=== PATIENT | male | born 1970 | race Caucasian/White ===

== ENCOUNTER 2016-03-12 09:01 | Outpatient (RCR) | payer OTHER ==
--- OUTSIDE RECORDS SUMMARY | 2016-03-06 12:44 | XMS REPORT | Continuity of Care Document ---
Author Author [facility] Organization [facility] Address Unknown Phone Unavailable Care Team Providers Care Wellness Consultant Name Role Phone JOSEFINA BRIONES MD PCP Insurance Providers Payer Name Policy Number Subscriber Name Relationship [employer] [id number] Meryl Dumont D 01 Advance Directives Directive Response Recorded Date/Time Advance Directives No 03/05/16 6:49am Health Care Power of Art Department Head No 03/05/16 6:49am Organ Donor No 03/05/16 6:49am Resuscitation Status Full Code 03/05/16 6:49am Problems No problem information available. Medications Current Home Medications Medication Dose Units Route Directions Days/Qty Instructions Start Date Phenylephrine/Diphenhydramine 1 Each 1 Each Oral Daily 03/03/16 Oxycodone Hcl/Acetaminophen 1 Each 1 Each Oral Every 4HRS as needed for Pain 40 03/05/16 Past Home Medications Medication Directions Ordered Status Acetaminophen 500 Mg Tablet, 05/29/07 Discontinued Amoxicillin/Clavulanate Potassium 1 Each Tablet, 500 Mg Oral Twice A Day Discontinued Acetaminophen/Hydrocodone Bitart 1 Each Tablet, 1-2 Tab Oral Every 4HRS as needed for Pain 06/02/13 Discontinued Social History Social History Problem Response Recorded Date/Time Alcohol Use Denies Use 03/05/2016 6:49am Recreational Drug Use No 03/05/2016 6:49am Recent Foreign Travel No 03/05/2016 6:50am Recent Infectious Disease Exposure No 03/05/2016 6:50am Smoking Status Never a Smoker 03/05/2016 6:49am Recent Hopitalizations No 03/05/2016 6:49am Query Response Start Date Stop Date Smoking Status Never a Smoker Hospital Discharge Instructions No hospital discharge instructions. Plan of Care Discharge Date 03/05/16 11:15am Instructions/Education Provided ANESTHESIA INSTRUCTIONS POSTOP DR. BRIONES-SHOULDER SURGERY Prescriptions See Medication Section Functional Status No functional status results. Allergies, Adverse Reactions, Alerts No known allergies. Immunizations No immunization records. Vital Signs Acute Vital Signs Vital Response Date/Time Temperature (Fahrenheit) 96.6 degrees F (97.6 - 99.5) 03/05/2016 11:15am Temperature (Calculated Celsius) 35.00612 degrees C (36.4 - 37.5) 03/05/2016 11:15am Temperature Source Temporal 03/05/2016 11:15am Pulse Rate (adult) 96 bpm (60 - 90) 03/05/2016 11:15am Respiratory Rate 16 bpm (12 - 24) 03/05/2016 11:15am O2 Sat by Pulse Oximetry 92 % (88 - 100) 03/05/2016 11:15am Blood Pressure 142/90 mm Hg 03/05/2016 11:15am Blood Pressure Mean 107 mm Hg 03/05/2016 6:51am Blood Pressure 142/90 mm Hg 03/05/2016 11:15am Pain Numeric Pain Scale 3 03/05/2016 11:15am Pain Intensity 3 03/05/2016 11:15am Height (Feet) 5 feet 03/05/2016 6:50am Height (Inches) 9.00 inches 03/05/2016 6:50am Height (Calculated Centimeters) 175.071085 cm 03/05/2016 6:50am Weight (Pounds) 218 pounds 03/05/2016 6:50am Weight (Ounces) 2.0 oz 03/05/2016 6:50am Weight (Calculated Grams) 75897.84 gm 03/05/2016 6:50am Weight (Calculated Kilograms) 98.079273 kilograms 03/05/2016 6:50am Calculated BMI 32.2 03/05/2016 6:50am Results Pending Microbiology Results Procedure Source Collection Date/Time Procedures Procedure Status Date Provider(s) Open repair of right rotator cuff Completed 03/05/16 JOSEFINA BRIONES MD Encounters Encounter Location Arrival/Admit Date Discharge/Depart Date Attending Provider Departed [facility] 03/05/16 6:16am 11:15am JOSEFINA BRIONES MD Departed Clinic [facility] 03/03/16 2:09pm 03/03/16 2: 26pm JOSEFINA BRIONES MD
[~2016-03-12 09:01] MED LIST: AC500T; ACHD5005 PO; AMOX-355 PO; OXYC-471 PO; [UNRECOGNIZED DRUG - CODE] PO
== END 2016-04-01 13:25 | disposition home or self-care (01) ==
PROVIDERS: ATTEND Orthopaedic Surgery
DX: S43.431A Superior glenoid labrum lesion of right shoulder, initial encounter (principal); X58.XXXA Exposure to other specified factors, initial encounter; Y99.8 Other external cause status

== ENCOUNTER → 2016-10-08 | Outpatient (CLI) | payer OTHER ==
[~2016-10-08] MED LIST changes: +DOCU100C37 PO; +ONDA4TAB11 PO; +PANT40TA2 PO; +SUCR1ORA5 PO; +SUCR1TAB36 PO
[2016-10-13 07:37] LABS: TESTOSTERONE FREE 59.6 pg/mL (47.0-244.0)
== END ==
LOC: LAB 09:07
PROVIDERS: ATTEND Urology
DX: E29.1 Testicular hypofunction (principal)
CPT/HCPCS: 36415; 84402; 84403

== ENCOUNTER → 2017-01-26 | Outpatient (CLI) | payer OTHER ==
[~2017-01-26] MED LIST changes: +CATHETER FLUSH 10 ML SYR IV PRN
--- NOTE | 2017-01-27 12:16 | Diagnostic Imaging Report ---
EXAMINATION: Whole-body octreotide scan. TECHNIQUE: After the intravenous administration of 6.6 mCi of indium 111 octreotide, imaging of the whole body is performed at 4 hours and at 24 hours after administration. INDICATION: Mass in the right lower quadrant. FINDINGS: There is uvyk-ih-ltrunptn area of increased uptake seen in the right lower quadrant suggestive of a somatostatin receptor positive mass in correlation with the lesion seen on CT scan in the right lower quadrant of the mesentery. The uptake persists on 24-hour images. There is physiologic uptake in the liver, kidneys, spleen and in the urinary bladder. The activity is difficult to differentiate between mesentery and TI and area of thickening in the terminal ileum seen on CT scan is not well evaluated on this exam. There is otherwise no evidence of distant metastasis. 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 Dictated by: Dictated on workstation # [id number]
--- NOTE | 2017-01-27 14:21 | Diagnostic Imaging Report ---
SPECT images performed after octreotide scan in three planes. Images seen after the intravenous administration of 6.6 mCi of indium-111 octreotide intravenously, images with SPECT in three planes are performed after 24 hours of the injection. SPECT images are performed over the abdomen and pelvis. INDICATION: Right lower quadrant mass. FINDINGS: The images demonstrate focus of mild/ moderate increased radiotracer uptake in the right lower quadrant area. The image resolution and intensity of uptake is not enough to differentiate if there are two adjacent lesions as questioned on the CT scan based on the mesenteric lesion and possible lesion within the terminal ileum. SPECT images over the abdomen otherwise demonstrate physiologic uptake in the kidneys, liver, and spleen and in the bladder. IMPRESSION: Right lower quadrant uptake appears to match the area of mesenteric mass in the right lower quadrant mesentery compatible with somatostatin receptor positive tumor. Dictated by: Dictated on workstation # [id number]
== END ==
LOC: CARD 09:37
PROVIDERS: ATTEND Family Medicine
DX: R19.03 Right lower quadrant abdominal swelling, mass and lump (principal)
CPT/HCPCS: 78803; 78804

== ENCOUNTER 2017-02-12 05:36 | Outpatient (CLI) | payer OTHER ==
[~2017-02-12] VITALS: Ht 177.8 cm; Wt 99.8 kg
[~2017-02-12 05:36] MED LIST changes: -CATHETER FLUSH 10 ML SYR IV PRN
== END 2017-02-12 10:14 ==
LOC: PREOP 05:36
PROVIDERS: ATTEND Surgery
DX: Z01.818 Encounter for other preprocedural examination (principal); R10.9 Unspecified abdominal pain; R19.00 Intra-abdominal and pelvic swelling, mass and lump, unspecified site

== ENCOUNTER 2017-02-18 05:34 | Outpatient (CLI) | payer OTHER ==
[~2017-02-18] VITALS: Ht 177.8 cm; Wt 99.8 kg
== END 2017-02-18 14:25 ==
LOC: PREOP 05:34
PROVIDERS: ATTEND Surgery
DX: Z01.818 Encounter for other preprocedural examination (principal); Z11.2 Encounter for screening for other bacterial diseases; R19.03 Right lower quadrant abdominal swelling, mass and lump
CPT/HCPCS: 87081

== ENCOUNTER 2017-02-18 12:30 | Day surgery (SDC) | payer OTHER ==
[~2017-02-18] VITALS: Ht 177.8 cm; Wt 99.8 kg
--- OUTSIDE RECORDS SUMMARY | 2017-02-18 12:34 | XMS REPORT | Encounter Summary ---
Author Author [facility] Address Unknown Phone Unavailable Care Team Providers Care Granulating Machine Operator Name Role Phone PCP Unavailable Reason for Visit * Reason Comments Navigation Assessment Encounter Details Date Type Department Care Team Description 02/02/2017 Telephone [facility] Devin Cortez MD Navigation Assessment [facility] - Exam [address] [place] [address] [place] [address] [phone] Social History Tobacco Use Types Packs/Day Years Used Date Never Assessed Sex Assigned at Date Recorded Not on file as of this encounter Miscellaneous Notes * Telephone Encounter - Uyen Petersen RN - 02/02/2017 1:12 PM PLATING TECHNICIAN Formatting of this note may be different from the original. 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 He was admitted over night to [facility] for abdominal pain. While there he had a CT scan that noted 3.3 CM mass in the right lower quadrant mesentery and some mild wall thickening of the distal ileum. 01/20/2017 he had an octreotide scan -- mesenteric mass in the right lower quadrant Suggestive of somatostatin receptor positive tumor. Patient is scheduled for surgical resection in [facility] on 02/09 but is wanting opinion and possible surgery at . Physician Info: Referring Physician: Dr Rodrigues [phone] Location of Films: [facility] Location of Pathology: None NEEDS Assessment: Genetic Counseling: Not Applicable Nutrition: No needs identified Have you recently lost weight without trying?: No If yes, how much weight have you lost?: Weight Loss Score: 0 2-13lb=1 14-23 lb=2 24-33 lb=3 34lb=4 Unsure=2 Have you been eating poorly because of a decreased appetite?: no Appetite Score: 0 No=0 Yes=1 MST Score: 0 (Add weight loss and appetite scores) MST score of 2 or more=At Risk Social Work/Financial: No need identified Spiritual & Emotional: Emotional support provided Physical: No needs identified Communication: No needs identified Oncofertility - Females age 40 and under; Males age 50 and under : Not applicable in this encounter Plan of Treatment Not on fileas of this encounter Visit Diagnoses Not on filein this encounter
--- OUTSIDE RECORDS SUMMARY | 2017-02-18 12:34 | XMS REPORT | Clinical Summary ---
Author Author [facility] Organization [facility] Address Unknown Phone Unavailable Care Team Providers Care Rugby League Footballer Name Role Phone PCP Unavailable Source Comments Some departments are not documenting in the electronic medical record. If you do not see the information that you expected, contact Release of Information in the Health Information Management department at [phone] for further assistance in locating additional records.[facility] Allergies Not on File Current Medications Not on file Active Problems Not on file Encounters Date Type Specialty Care Team Description 02/04/2017 Ancillary Radiology Outpatient, Radiologist Diagnosis unknown Orders 02/02/2017 Telephone Oncology Devin Cortez MD Navigation Assessment 02/02/2017 Documentation Oncology Devin Cortez MD 01/27/2017 Hospital Radiology Encounter 01/26/2017 Hospital Radiology Encounter 01/20/2017 Hospital Radiology Encounter from Last 3 Months Social History Tobacco Use Types Packs/Day Years Used Date Never Assessed Sex Assigned at Date Recorded Not on file Last Filed Vital Signs Not on file Plan of Treatment Health Maintenance Due Date Last Done Comments PHYSICAL (COMPREHENSIVE) 01/19/1976 EXAM PERTUSSIS VACCINE 01/19/1980 TETANUS VACCINE 1986 INFLUENZA VACCINE 10/14/2016 Results * [facility] EXTERNAL IMAGING (01/27/2017) Only the most recent of 2 results within the time period is included. Narrative This order has been auto finalized and does not contain a result. * CT ABD/PEL EXTERNAL IMAGING (01/20/2017) Narrative This order has been auto finalized and does not contain a result. from Last 3 Months
--- OUTSIDE RECORDS SUMMARY | 2017-02-18 12:34 | XMS REPORT | Encounter Summary ---
Author Author [facility] Organization [facility] Address Unknown Phone Unavailable Care Team Providers Care Oil Rig Roughneck Name Role Phone PCP Unavailable Encounter Details Date Type Department Care Team Description 01/26/2017 Hospital [facility] Radiology [address] [place] [address] Social History Tobacco Use Types Packs/Day Years Used Date Never Assessed Sex Assigned at Date Recorded Not on file as of this encounter Plan of Treatment Not on fileas of this encounter Results * [facility] EXTERNAL IMAGING (01/26/2017) Narrative This order has been auto finalized and does not contain a result. in this encounter Visit Diagnoses Diagnosis Diagnosis unknown Other unknown and unspecified cause of morbidity or mortality in this encounter
--- OUTSIDE RECORDS SUMMARY | 2017-02-18 12:34 | XMS REPORT | Encounter Summary ---
Author Author [facility] Organization [facility] Address Unknown Phone Unavailable Care Team Providers Care Wire Turning Machine Operator Name Role Phone PCP Unavailable Encounter Details Date Type Department Care Team Description 01/20/2017 Hospital [facility] Encounter Hospital Radiology [address] [place] [address] Social History Tobacco Use Types Packs/Day Years Used Date Never Assessed Sex Assigned at Date Recorded Not on file as of this encounter Plan of Treatment Not on fileas of this encounter Results * CT ABD/PEL EXTERNAL IMAGING (01/20/2017) Narrative This order has been auto finalized and does not contain a result. in this encounter Visit Diagnoses Diagnosis Diagnosis unknown Other unknown and unspecified cause of morbidity or mortality in this encounter
--- OUTSIDE RECORDS SUMMARY | 2017-02-18 12:34 | XMS REPORT | Encounter Summary ---
Author Author [facility] Organization [facility] Address Unknown Phone Unavailable Care Team Providers Care Sales Solutions Associate Name Role Phone PCP Unavailable Encounter Details Date Type Department Care Team Description 01/27/2017 Hospital [facility] Radiology [address] [place] [address] Social History Tobacco Use Types Packs/Day Years Used Date Never Assessed Sex Assigned at Date Recorded Not on file as of this encounter Plan of Treatment Not on fileas of this encounter Results * [facility] EXTERNAL IMAGING (01/27/2017) Narrative This order has been auto finalized and does not contain a result. in this encounter Visit Diagnoses Diagnosis Diagnosis unknown Other unknown and unspecified cause of morbidity or mortality in this encounter
--- OUTSIDE RECORDS SUMMARY | 2017-02-18 12:34 | XMS REPORT | Encounter Summary ---
Author Author [facility] Organization [facility] Address Unknown Phone Unavailable Care Team Providers Care Supervisor Sulfuric Acid Plant Name Role Phone PCP Unavailable Encounter Details Date Type Department Care Team Description 02/04/2017 Ancillary Rad Outpatient, Radiologist Diagnosis unknown Orders [address] [place] [address] Social History Tobacco Use Types Packs/Day Years Used Date Never Assessed Sex Assigned at Date Recorded Not on file as of this encounter Plan of Treatment Not on fileas of this encounter Results * [facility] EXTERNAL IMAGING (01/27/2017) Narrative This order has been auto finalized and does not contain a result. * [facility] EXTERNAL IMAGING (01/26/2017) Narrative This order has been auto finalized and does not contain a result. * CT ABD/PEL EXTERNAL IMAGING (01/20/2017) Narrative This order has been auto finalized and does not contain a result. in this encounter Visit Diagnoses Diagnosis Diagnosis unknown Other unknown and unspecified cause of morbidity or mortality in this encounter
--- OUTSIDE RECORDS SUMMARY | 2017-02-18 12:34 | XMS REPORT | Encounter Summary ---
Author Author [facility] Organization [facility] Address Unknown Phone Unavailable Care Team Providers Care Yarn Dry Room Worker Name Role Phone PCP Unavailable Encounter Details Date Type Department Care Team Description 02/02/2017 Documentation [facility] Devin Cortez MD [facility] Exam [address] [place] [address] [place] [address] [phone] Social History Tobacco Use Types Packs/Day Years Used Date Never Assessed Sex Assigned at Date Recorded Not on file as of this encounter Plan of Treatment Not on fileas of this encounter Visit Diagnoses Not on filein this encounter
[2017-02-18] MEDS ORDERED: NS IV 500 ML 500 ML IV PRN (12:39)
[2017-02-18 12:52] VITALS: BP 137/88
--- NOTE | 2017-02-18 15:13 | Conscious Sedation/ASA ---
Conscious Sedation Pre-Proced Time Reviewed: 15:13 ASA Class: 2 Airway Mallampati Classification: ([place] appropriate class) I. II. III, IV Lungs Heart ASA score ASA 1: a normal healthy patient ASA 2: a patient with a mild systemic disease (mid diabetes, controlled hypertension, obesity ASA 3: a patient with a severe systemic disease that limits activity (angina , COPD, prior Myocardial infarction) ASA 4: a patient with an incapacitating disease that is a constant threat to life (CHF, renal failure) ASA 5: a moribund patient not expected to survive 24 hrs. (ruptured aneurysm) ASA 6: a declared brain patient whose organs are being harvested. For emergent operations, add the letter E after the classification Grade 1 Sedation Plan: Discussed options with patient/fam Note The patient is an appropriate candidate to undergo the planned procedure, sedation, and anesthesia. The patient immediately re-assessed prior to indication. ISRAEL OROZCO MD Feb 18, 2017 3:13 pm
[2017-02-18] MEDS ORDERED: MIDAZOLAM 2 MG/2 ML (VERSED) VIAL ONE ×3 (15:34→15:35)
[2017-02-18] MEDS ORDERED: fentaNYL INJECTION 100 MCG/2 ML AMP ONE (15:34)
[2017-02-18] MEDS: MIDAZOLAM 2 MG/2 ML (VERSED) VIAL IVP PRN ×3 (15:35→15:41)
[2017-02-18] MEDS: fentaNYL INJECTION 100 MCG/2 ML AMP IVP PRN ×2 (15:36→15:39)
--- NOTE | 2017-02-18 15:53 | Endo Procedure Record ---
Endo Procedure Report Date of Procedure Feb 18, 2017 Surgeon (s) ISRAEL OROZCO MD Post Procedure/Op Diagnosis mass in the ileocecal mesentery with indentation on the ileocecal valve Procedure Performed colonoscopy to cecum Description of Procedure Anesthesia Type: Conscious Sedation Specimen(s) collected/removed none Description of the Procedure Indication for the procedure: Evaluation for acute abdominal pain included a CT scan, revealing a 3.4 cm mass lesion at the ileal-cecal mesentery, suggestive of a neuro-endocrine tumor. There was indentation/involvement of the ileocecal valve on the CT scan and therefore preoperative colonoscopy was felt to be appropriate. Informed consent was obtained after reviewing the procedure in detail.. Description of the procedure: He was placed in left lateral disposition and his vital signs were monitored. Conscious sedation was achieved using Versed and fentanyl. Digital rectal examination was unremarkable. The colonoscope was then introduced in the rectum and advanced all the way up to the cecum. The scope was then withdrawn slowly and the mucosa examined in a systematic fashion The coronary bowel preparation was reasonable Finding: Indentation at the ileocecal valve with no mucosal lesion. This conforms to the CT finding. No other mucosal lesions were found. He tolerated the procedure well and was taken back to the nursing area in a stable condition. Impression: Mass lesion at the ileocecal mesentery possibly a neuroendocrine tumor. Indentation at the ileocecal valve with normal mucosa. Surgery scheduled for 02/20/17 Copies To: KARISHMA FLYNN MD, XAVIER M MD Feb 18, 2017 3:53 pm
--- NOTE | 2017-02-18 15:54 | Discharge Inst-Simple/Standard ---
Discharge Inst-Standard Discharge Medications New, Converted or Re-Newed RX: Other Patient Instructions/Follow Up Plan of Care/Instructions/FU: to stay on clear liquids and follow instructions for surgery. Activity as Tolerated: Yes Discharge Diet: Liquid Diet ISRAEL OROZCO MD Feb 18, 2017 3:54 pm
[2017-02-18 16:05] VITALS: BP 122/79
[2017-02-18 16:30] VITALS: BP 140/99
[2017-02-18 16:41] VITALS: BP 140/99
== END 2017-02-18 16:45 | disposition home or self-care (01) ==
LOC: ENDO 12:30
PROVIDERS: ATTEND Surgery
DX: R19.03 Right lower quadrant abdominal swelling, mass and lump (principal); K21.9 Gastro-esophageal reflux disease without esophagitis; G47.30 Sleep apnea, unspecified; E66.9 Obesity, unspecified; Z68.31 Body mass index [BMI] 31.0-31.9, adult

== ENCOUNTER 2017-02-20 06:00 | Inpatient (IN) | payer OTHER ==
[2017-02-20] VITALS (18 sets, daily range): BP systolic 127–149; BP diastolic 84–96
[~2017-02-20] VITALS: Ht 177.8 cm; Wt 99.8 kg
[2017-02-20] MEDS ORDERED: LACTATED RINGERS 1,000 ML IV PRN (06:22)
[2017-02-20] MEDS ORDERED: metroNIDAZOLE 500MG/100ML IVPB 100 ML IV ONE (06:30)
[2017-02-20] MEDS ORDERED: ceFAZolin INJECTION 1,000 MG in NS (IVPB) 50 ML IV ONE (06:30)
[2017-02-20] MEDS ORDERED: BUP/EPI 0.5% 1:200,000 (MARCAINE) 10ML VIAL IJ ONE (06:45)
[2017-02-20] MEDS ORDERED: MIDAZOLAM 2 MG/2 ML (VERSED) VIAL ONE (06:58)
[2017-02-20] MEDS ORDERED: fentaNYL INJECTION 250 MCG/5 ML AMP ONE (06:58)
--- NOTE | 2017-02-20 07:01 | Progress Note-Pre Operative ---
Pre-Operative Progress Note H&P Reviewed The H&P was reviewed, patient examined and no changes noted. Date Seen by Provider: Feb 03, 2017 Time Seen by Provider: 15:55 Date H&P Reviewed: Feb 20, 2017 Time H&P Reviewed: 07:00 Pre-Operative Diagnosis: Mass at the ileo-colic mesentery ISRAEL OROZCO MD Feb 20, 2017 7:01 am
[2017-02-20] MEDS: LACTATED RINGERS 1,000 ML IV PRN ×2 (07:08→08:00)
[2017-02-20] MEDS ORDERED: CATHETER FLUSH 10 ML SYR IV PRN (07:45)
[2017-02-20] MEDS ORDERED: metroNIDAZOLE 500 MG/100 ML IVPB (PRE-MIX) IV ONE (07:45)
[2017-02-20] MEDS ORDERED: ceFAZolin 2 GM/NS 50 ML IV ONE (07:45)
[2017-02-20] MEDS ORDERED: DEXAMETHASONE 10 MG/ML (DECADRON) 1 ML VIAL ONE (08:48)
[2017-02-20] MEDS ORDERED: GLYCOPYRROLATE 0.2 MG/ML (ROBINUL) 2 ML VIAL ONE (08:48)
[2017-02-20] MEDS ORDERED: LIDOCAINE PF 2% 5 ML (XYLOCAINE) VIAL ONE (08:48)
[2017-02-20] MEDS ORDERED: SEVOFLURANE (ULTANE) 15 ML INHAL SOLN ONE ×6 (08:48→12:10)
[2017-02-20] MEDS ORDERED: proPOfol 200 MG/20 ML (DIPRIVAN) VIAL IV ONE (08:48)
[2017-02-20] MEDS ORDERED: ONDANSETRON 4 MG/2 ML (SDV) Z0FRAN ONE (08:48)
[2017-02-20] MEDS ORDERED: ROCURONIUM 50 MG/5 ML (ZEMURON) VIAL IV ONE (08:48)
[2017-02-20] MEDS ORDERED: NEOSTIGMINE (BLOXIVERZ ) 1 MG/1ML 10 ML VIAL ONE (08:48)
[2017-02-20] MEDS ORDERED: ceFAZolin 1,000 MG (ANCEF) VIAL ONE (11:09)
[2017-02-20] MEDS ORDERED: fentaNYL INJECTION 100 MCG/2 ML AMP ONE ×2 (12:22→16:23)
--- NOTE | 2017-02-20 12:38 | Operative Report ---
Operative Report Date of Procedure/Surgery Feb 20, 2017 Surgeon (s) ISRAEL OROZCO MD Commercial Litigation Paralegal (s): N/A Post-Operative Diagnosis Same Procedure Performed Robotic assisted right hemicolectomy with intracorporeal anastomosis Description of Procedure Anesthesia Type: General Estimated blood loss (mL): 50 mL Specimen(s) collected/removed Right colon and terminal ileum Description of the Procedure Indication for the procedure: Evaluation for acute abdominal pain included a CT scan, revealing a 3 cm mass at the ileo-colic mesentery, abutting onto the ileocecal valve. Colonoscopy was negative for any mucosal lesions. Octreotide scan was suggestive of a neuroendocrine neoplasm he was offered resection using minimal invasive technique with robotic assistance and intracorporeal anastomosis. Informed consent was obtained after reviewing the operative details and complications of wound infection, anastomotic leak, intra-abdominal abscess and cardio-respiratory dysfunction Description of the procedure: She was placed supine on the operative table and general anesthesia induced using an endotracheal tube. Ancef and Flagyl were administered intravenously as prophylaxis against wound infection. The same combination of antibodies was administered 4 hours later, toward the end of the operation. Sequential compression devices were placed around his legs, to minimize the risk of venous thrombosis. A Rodriguez catheter was placed to monitor urine output during the perioperative period. Abdomen was prepared and draped in the usual sterile manner. Due to previous abdominal surgery using a midline incision, I elected to establish pneumoperitoneum using a Veress needle introduced over the left subcostal region. Intra-abdominal pressure was maintained at 15 mmHg, using carbon dioxide insufflation. A 5 mm trocar was placed and anatomy visualized using the conventional laparoscope first. Omentum was adherent to the midline and taken down using a grasper introduced via another 5 mm trocar placed over the left side of the abdomen. Subsequently, under direct view, I placed a 12 mm trocar, lateral to the umbilicus, on the left side followed by an 8 mm trocar over the suprapubic region and a similar trocar over the epigastric region. Another 12 mm trocar was placed along the midclavicular line to the left to facilitate using the robotic stapler. An additional 12 mm trocar was placed over the left lower quadrant for using an assistant paralegal's grasper. The patient was then turned into Trendelenburg position, the right side tilted up. Robotic system was then docked in place. Laparoscopic survey confirmed a constricting tumor at the ileocolic vascular pedicle, close to the ileocecal junction. Adhesions were found around the subhepatic region due to previous surgery. Ileocecal junction was held up using the robotic third arm, placing the ileocolic pedicle under slight tension. It was taken down using the vessel sealing device and mobilization was continued in a medial to lateral fashion, identifying and protecting the right ureter and the duodenum. Continued around the hepatic flexure to the proximal transverse colon. Distal small bowel was mobilized by controlling the mesentery with the vessel sealing device. It was then divided using the robotic , 3.5 mm stapler. Omentum was dissected off the transverse colon, creating a window proximal one third, preserving the middle colic pedicle. The right colic vessels were taken down using the vessel sealing device. Transverse colon was then divided using the robotic 3.5 mm stapler. Specimen was then placed in the pelvis to be retrieved at the end of the operation An isoperistaltic anastomosis was created between the small bowel and the transverse colon using a 3.5 mm stapler. The common enterotomy was closed using a first layer of 20V LOC suture and a second layer of Lembert's sutures with 3-0 Vicryl, with robotic assistance. Hemostasis was satisfactory. Omentum was placed over the anastomosis in preparation for concluding the operation. 5 cm Pfannenstiel incision was made and the specimen retrieved using a wound protection device. Peritoneum over this incision was closed using 3-0 Vicryl in the fascia using #2 Prolene sutures. Subcutaneous tissue was closed using 3- 0 Vicryl and skin with 4-0 Vicryl, in a subcuticular fashion. The fascia over the 12 mm incision along the left upper quadrant was closed using #1 Vicryl. All the skin incisions were closed using 4-0 Vicryl, in a subcuticular fashion. 0.5 percent Marcaine with epinephrine was infiltrated along the incisions both preemptively and at the conclusion of the operation He tolerated the procedure well, was extubated in the operating room and taken to the recovery room in a stable condition. Findings of the Procedure See op report Allergies and Home Medications Allergies Coded Allergies: No Known Drug Allergies (Unverified , 02/12/17) Home Medications No Active Prescriptions or Reported Meds ISRAEL OROZCO MD Feb 20, 2017 12:38 pm
[2017-02-20] MEDS ORDERED: HYDROmorphone (DILAUDID) 2 MG/ML VIAL ONE (12:55)
[2017-02-20] MEDS ORDERED: morphine INJ 10 MG/ML 1ML (SYR OR VIAL) ONE (12:55)
[2017-02-20] MEDS ORDERED: morphine INJ 10 MG/ML 1ML (SYR OR VIAL) IVP PRN (13:15)
[2017-02-20] MEDS ORDERED: ONDANSETRON 4 MG/2 ML (SDV) Z0FRAN IVP PRN (13:15)
[2017-02-20] MEDS: HYDROmorphone (DILAUDID) 2 MG/ML VIAL IVP PRN ×2 (13:34→13:49)
[2017-02-20] MEDS ORDERED: SILD100T PO (15:37)
[2017-02-20] MEDS: LACTATED RINGERS 1,000 ML IV SCH ×2 (16:17→17:40)
[2017-02-20] MEDS: fentaNYL INJECTION 100 MCG/2 ML AMP IV PRN ×4 (16:27→23:57)
[2017-02-20] MEDS: ceFAZolin INJECTION 1,000 MG in NS (IVPB) 50 ML IV SCH (17:22)
[2017-02-20] MEDS ORDERED: metroNIDAZOLE 500MG/100ML IVPB 100 ML IV SCH (18:00)
[2017-02-21] VITALS (15 sets, daily range): BP systolic 116–172; BP diastolic 67–94
[2017-02-21] MEDS ORDERED: metroNIDAZOLE 500MG/100ML IVPB 100 ML IV SCH (00:30)
[2017-02-21] MEDS: fentaNYL INJECTION 100 MCG/2 ML AMP IV PRN ×9 (01:45→23:58)
[2017-02-21] MEDS: ceFAZolin INJECTION 1,000 MG in NS (IVPB) 50 ML IV SCH (01:47)
[2017-02-21 05:15] LABS: ANION GAP 10 MMOL/L (5-14); BLOOD UREA NITROGEN 12 MG/DL (7-18); BUN/CREATININE RATIO 10; CALCIUM 8.7 MG/DL (8.5-10.1); CARBON DIOXIDE 23 MMOL/L (21-32); CHLORIDE 101 MMOL/L (98-107); CREATININE SERUM 1.24 MG/DL (0.60-1.30); GFR ESTIMATED > 60; GLUCOSE 119 MG/DL (70-105); SODIUM 134 MMOL/L (135-145)
[2017-02-21] MEDS: LACTATED RINGERS 1,000 ML IV SCH (05:41)
[2017-02-21] MEDS: ONDANSETRON 4 MG/2 ML (SDV) Z0FRAN IVP PRN (09:01)
[2017-02-21] MEDS: HYDROcodone/APAP 5 MG/325 MG (LORTAB) TAB PO PRN ×4 (09:01→20:41)
[2017-02-21] MEDS ORDERED: KETOROLAC 30 MG/ML VIAL ONE (09:54)
[2017-02-21] MEDS ORDERED: KETOROLAC 30 MG/ML VIAL IVP ONE (10:15)
--- NOTE | 2017-02-21 11:00 | Progress Note-Standard ---
Standard Progress Note Progress Notes/Assess & Plan Date Seen by Provider: Feb 21, 2017 Time Seen by Provider: 09:55 Progress/Assessment & Plan poor motivation to move around and use incentive spirometry. Low-grade fever possibly due to postoperative atelectasis. Incisions dry. Electrolytes normal. Rodriguez catheter removed. Lungs clear. We will use Toradol in anticipation of better pain control and therefore delay starting Lovenox, to minimize the risk of iatrogenic bleeding. Could be transferred to the floor. 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
[2017-02-21] MEDS: METOCLOPRAMIDE INJ 10 MG/2 ML (REGLAN) IVP SCH ×2 (12:31→17:49)
[2017-02-21] MEDS ORDERED: ENOXAPARIN 40 MG/0.4 ML (LOVENOX) SYR SC SCH (12:45)
--- NOTE | 2017-02-21 13:15 | Anesthesia-General Post-Op ---
General Patient Condition Mental Status/LOC: Same as Preop Cardiovascular: Satisfactory Nausea/Vomiting: Absent Respiratory: Satisfactory Pain: Controlled Complications: Absent Post Op Complications Complications None Follow Up Care/Instructions Patient Instructions None needed. Anesthesia/Patient Condition Patient Condition Patient is doing well, C/O abdominal pain/soreness which is expected, stable vital signs, no apparent adverse anesthesia problems. Transfer to the floor today per pt. JOHNSON PHAM DO Feb 21, 2017 13:15
[2017-02-21] MEDS: KETOROLAC 15 MG/ML VIAL IVP PRN (17:49)
[2017-02-21] MEDS: ENOXAPARIN 40 MG/0.4 ML (LOVENOX) SYR SC SCH (20:43)
[2017-02-22] VITALS: BP 122/80
[2017-02-22] MEDS: METOCLOPRAMIDE INJ 10 MG/2 ML (REGLAN) IVP SCH ×4 (00:02→17:53)
[2017-02-22] MEDS: fentaNYL INJECTION 100 MCG/2 ML AMP IV PRN ×7 (01:35→13:57)
[2017-02-22] MEDS: HYDROcodone/APAP 5 MG/325 MG (LORTAB) TAB PO PRN ×6 (01:35→23:19)
[2017-02-22 04:00] VITALS: BP 129/83
[2017-02-22 08:00] VITALS: BP 139/83
[2017-02-22] MEDS: KETOROLAC 15 MG/ML VIAL IVP PRN ×2 (09:29→17:20)
[2017-02-22 10:34] LABS: BASOPHILS % (AUTO) 0 % (0-10); EOSINOPHILS # (AUTO) 0.2 10^3/uL (0.0-0.3); EOSINOPHILS % (AUTO) 2 % (0-10); LYMPHOCYTES # (AUTO) 0.8 X 10^3 (1.0-4.0); LYMPHOCYTES % (AUTO) 6 % (12-44); MEAN CORPUSCULAR HEMOGLOBIN 30 PG (25-34); MEAN CORPUSCULAR HGB CONC 34 G/DL (32-36); MEAN CORPUSCULAR VOLUME 88 FL (80-99); MEAN PLATELET VOLUME 10.3 FL (7.4-10.4); MONOCYTES # (AUTO) 1.2 X 10^3 (0.0-1.0); MONOCYTES % (AUTO) 10 % (0-12); NEUTROPHILS # (AUTO) 9.8 X 10^3 (1.8-7.8); NEUTROPHILS % (AUTO) 82 % (42-75); PLATELET COUNT 267 10^3/uL (130-400); RED BLOOD COUNT 4.58 10^6/uL (4.35-5.85)
[2017-02-22 10:59] LABS: BAND NEUTROPHILS 0 %; BASOPHILS % (MANUAL) 0 %; EOSINOPHILS % (MANUAL) 2 %; LYMPHOCYTES % (MANUAL) 4 %; NEUTROPHILS % (MANUAL) 91 %
[2017-02-22] MEDS: LACTATED RINGERS 1,000 ML IV SCH ×2 (11:02→18:53)
[2017-02-22 12:00] VITALS: BP 139/83
--- NOTE | 2017-02-22 12:31 | Progress Note-Standard ---
Standard Progress Note Progress Notes/Assess & Plan Date Seen by Provider: Feb 22, 2017 Time Seen by Provider: 10:18 Progress/Assessment & Plan poor motivation to move around and use incentive spirometry. Low-grade fever possibly due to postoperative atelectasis. Incisions dry. Electrolytes normal. Rodriguez catheter removed. Lungs clear. We will use Toradol in anticipation of better pain control and therefore delay starting Lovenox, to minimize the risk of iatrogenic bleeding. Could be transferred to the floor. reports difficulty emptying his bladder with very minimal residual urine by ultrasound examination. Slight abdominal distention with hiccups. Low-grade fever. Lungs clear. We will resume IV fluids and allow just ice chips. White cell count slightly elevated, we'll continue to observe. 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
[2017-02-22 15:46] VITALS: BP 136/89
[2017-02-22 19:55] VITALS: BP 163/98
[2017-02-22] MEDS: ENOXAPARIN 40 MG/0.4 ML (LOVENOX) SYR SC SCH (21:07)
[2017-02-23] VITALS: BP 150/93
[2017-02-23] MEDS: METOCLOPRAMIDE INJ 10 MG/2 ML (REGLAN) IVP SCH ×5 (00:12→22:40)
[2017-02-23] MEDS: KETOROLAC 15 MG/ML VIAL IVP PRN ×2 (00:12→06:32)
[2017-02-23] MEDS: LACTATED RINGERS 1,000 ML IV SCH ×4 (03:08→19:04)
[2017-02-23] MEDS: HYDROcodone/APAP 5 MG/325 MG (LORTAB) TAB PO PRN ×4 (03:42→20:32)
[2017-02-23 04:00] VITALS: BP 151/96
[2017-02-23 08:00] VITALS: BP 150/91
[2017-02-23] MEDS ORDERED: MAGNESIUM CITRATE 300 ML BTL PO NR ×2 (08:00→14:45)
[2017-02-23 12:00] VITALS: BP 149/86
--- NOTE | 2017-02-23 15:08 | Progress Note-Standard ---
Standard Progress Note Progress Notes/Assess & Plan Date Seen by Provider: Feb 23, 2017 Time Seen by Provider: 15:00 Progress/Assessment & Plan poor motivation to move around and use incentive spirometry. Low-grade fever possibly due to postoperative atelectasis. Incisions dry. Electrolytes normal. Rodriguez catheter removed. Lungs clear. We will use Toradol in anticipation of better pain control and therefore delay starting Lovenox, to minimize the risk of iatrogenic bleeding. Could be transferred to the floor. reports difficulty emptying his bladder with very minimal residual urine by ultrasound examination. Slight abdominal distention with hiccups. Low-grade fever. Lungs clear. We will resume IV fluids and allow just ice chips. White cell count slightly elevated, we'll continue to observe. passed flatus. Feels bloated but abdomen soft. Afebrile. We'll continue to use Reglan and IV fluids. 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
[2017-02-23 16:00] VITALS: BP 159/93
[2017-02-23] MEDS ORDERED: MILK OF MAGNESIA 400 MG/5 ML 30 ML UDC PO NR (16:00)
[2017-02-23] MEDS: ONDANSETRON 4 MG/2 ML (SDV) Z0FRAN IVP PRN (19:36)
[2017-02-23 20:00] VITALS: BP 143/90
[2017-02-23] MEDS: ENOXAPARIN 40 MG/0.4 ML (LOVENOX) SYR SC SCH (20:32)
[2017-02-23] MEDS: fentaNYL INJECTION 100 MCG/2 ML AMP IV PRN (22:40)
[2017-02-24] VITALS: BP 174/80
[2017-02-24] MEDS: KETOROLAC 15 MG/ML VIAL IVP PRN (00:16)
[2017-02-24] MEDS: LACTATED RINGERS 1,000 ML IV SCH ×2 (03:13→17:36)
[2017-02-24 04:00] VITALS: BP 146/89
[2017-02-24] MEDS: ONDANSETRON 4 MG/2 ML (SDV) Z0FRAN IVP PRN ×2 (04:18→07:56)
[2017-02-24] MEDS: METOCLOPRAMIDE INJ 10 MG/2 ML (REGLAN) IVP SCH ×3 (05:37→18:11)
[2017-02-24] MEDS ORDERED: CHLORASEPTIC SPRAY 177 ML LIQUID MC ONE (06:12)
[2017-02-24 06:22] LABS: BASOPHILS % (AUTO) 0 % (0-10); EOSINOPHILS # (AUTO) 0.1 10^3/uL (0.0-0.3); EOSINOPHILS % (AUTO) 1 % (0-10); LYMPHOCYTES # (AUTO) 0.6 X 10^3 (1.0-4.0); LYMPHOCYTES % (AUTO) 5 % (12-44); MEAN CORPUSCULAR HEMOGLOBIN 30 PG (25-34); MEAN CORPUSCULAR HGB CONC 35 G/DL (32-36); MEAN CORPUSCULAR VOLUME 86 FL (80-99); MEAN PLATELET VOLUME 10.8 FL (7.4-10.4); MONOCYTES % (AUTO) 9 % (0-12); NEUTROPHILS # (AUTO) 9.9 X 10^3 (1.8-7.8); NEUTROPHILS % (AUTO) 85 % (42-75); PLATELET COUNT 299 10^3/uL (130-400); RED BLOOD COUNT 4.41 10^6/uL (4.35-5.85); RED CELL DISTRIBUTION WIDTH 12.4 % (10.0-14.5); WHITE BLOOD COUNT 11.7 10^3/uL (4.3-11.0)
[2017-02-24] MEDS ORDERED: LACTATED RINGERS 1,000 ML IV SCH ×2 (06:30)
[2017-02-24] MEDS ORDERED: CHLORASEPTIC SPRAY 177 ML LIQUID MC PRN (06:30)
[2017-02-24] MEDS ORDERED: LORazepam INJ 2 MG/ML (ATIVAN) VIAL IVP ONE (06:30)
[2017-02-24 07:02] LABS: ANION GAP 14 MMOL/L (5-14); BLOOD UREA NITROGEN 9 MG/DL (7-18); BUN/CREATININE RATIO 10; CALCIUM 9.1 MG/DL (8.5-10.1); CARBON DIOXIDE 30 MMOL/L (21-32); CHLORIDE 94 MMOL/L (98-107); CREATININE SERUM 0.93 MG/DL (0.60-1.30); GFR ESTIMATED > 60; GLUCOSE 114 MG/DL (70-105); POTASSIUM 3.3 MMOL/L (3.6-5.0); SODIUM 138 MMOL/L (135-145)
[2017-02-24 07:30] LABS: INR 1.1 (0.8-1.4); PROTHROMBIN TIME PATIENT 14.2 SEC (12.2-14.7)
[2017-02-24 07:41] LABS: PHOSPHORUS 3.5 MG/DL (2.3-4.7)
[2017-02-24 08:00] VITALS: BP 155/98
--- NOTE | 2017-02-24 08:43 | Diagnostic Imaging Report ---
EXAMINATION: Portable upright radiograph of the chest. INDICATION: NG tube placement. FINDINGS: There is an NG tube hole with the proximal port opening at the GE junction level. The lungs demonstrate low volumes overall with minimal bibasilar atelectasis. The heart size is slightly enlarged. No effusion or pneumothorax. Mediastinum and jemma appear unremarkable. IMPRESSION: Bibasilar atelectasis. The NG tube is in the proximal stomach. Dictated by: Dictated on workstation # [id number]
[2017-02-24] MEDS ORDERED: SCOPOLAMINE 1.5 MG (TRANSDERM-SCOP) PATCH TD NR (09:30)
[2017-02-24] MEDS: PANTOPRAZOLE 40 MG/10 ML (PROTONIX) VIAL IV SCH ×2 (09:35→20:53)
--- NOTE | 2017-02-24 09:53 | Diagnostic Imaging Report ---
Portable upright radiograph of the chest. INDICATION: PICC line placement. FINDINGS: Right PICC line is seen and appears to course through a branch draining into the right subclavian vein along the right thoracic wall. NG tube is seen. The heart size is enlarged. No effusion or pneumothorax. Minimal bibasilar atelectasis seen. IMPRESSION: The right PICC line is in a branch at the level of the right subclavian vein. Adjustments is needed. The PICC line nurse is aware of findings. Dictated by: Dictated on workstation # [id number]
--- NOTE | 2017-02-24 10:46 | Diagnostic Imaging Report ---
INDICATION: PICC line adjustment. FINDINGS: Right PICC catheter is abnormally positioned oriented up the neck beyond the [id number]. Nursing service aware of this. OG in the stomach. IMPRESSION: Malposition right PICC is directed cephalad up the jugular above the [id number]. Dictated by: Dictated on workstation # [id number]
--- NOTE | 2017-02-24 11:18 | Diagnostic Imaging Report ---
EXAMINATION: Portable upright radiograph of the chest. INDICATION PICC line placement. FINDINGS: There is an NG tube seen projecting in the proximal stomach. There is a PICC line looped within a branch draining into the right subclavian vein. There is mild bibasilar atelectasis. The heart size is enlarged. IMPRESSION: Right PICC line is in a branch draining into the right subclavian vein. Adjustment or replacement is needed. The PICC line nurse is aware of the findings. Dictated by: Dictated on workstation # [id number]
--- NOTE | 2017-02-24 11:20 | Diagnostic Imaging Report ---
INDICATION: Line placement Frontal chest obtained at 1105 hrs am, and is compared to same day at 1041 hrs am. PICC line is seen from the right arm, the PICC line appears be within the cephalic vein and then passes back into the right axillary vein. NG tube tip overlies mid stomach. Heart is borderline in size. There is no focal infiltrate or pneumothorax or pleural fluid. IMPRESSION: Right-sided PICC line as above, tip passes back into the right axillary vein. Otherwise no change from earlier today. Dictated by: Dictated on workstation # [id number]
[2017-02-24] MEDS: POTASSIUM CL 10MEQ/50ML IVPB 50 ML IV SCH ×5 (11:23→17:37)
[2017-02-24 12:00] VITALS: BP 153/98
[2017-02-24] MEDS ORDERED: POTASSIUM CL 10MEQ/50ML IVPB 50 ML IV SCH (12:45)
[2017-02-24 16:00] VITALS: BP_SYST 146; BP_SYST 148; BP_DIAS 97
[2017-02-24] MEDS: [UNRECOGNIZED DRUG - OTHER] IV SCH ×10 (17:34)
[2017-02-24] MEDS: SODIUM CHLORIDE IV SCH ×10 (17:34)
[2017-02-24] MEDS: POTASSIUM CHLORIDE IV SCH ×10 (17:34)
--- NOTE | 2017-02-24 17:40 | Progress Note-Standard ---
Standard Progress Note Progress Notes/Assess & Plan Date Seen by Provider: Feb 24, 2017 Time Seen by Provider: 15:12 Progress/Assessment & Plan poor motivation to move around and use incentive spirometry. Low-grade fever possibly due to postoperative atelectasis. Incisions dry. Electrolytes normal. Rodriguez catheter removed. Lungs clear. We will use Toradol in anticipation of better pain control and therefore delay starting Lovenox, to minimize the risk of iatrogenic bleeding. Could be transferred to the floor. reports difficulty emptying his bladder with very minimal residual urine by ultrasound examination. Slight abdominal distention with hiccups. Low-grade fever. Lungs clear. We will resume IV fluids and allow just ice chips. White cell count slightly elevated, we'll continue to observe. passed flatus. Feels bloated but abdomen soft. Afebrile. We'll continue to use Reglan and IV fluids. developed nausea and vomiting last night requiring nasogastric tube placement. More than 2 L of bilious fluid suctioned out. Unable to tolerate nasogastric tube with constant gag reflex. Radiologically the tip of the NG tube is at the proximal body of the stomach. I, physically tried to advance it but he would not tolerate and therefore the tube was removed. I have reviewed the pathophysiology of postoperative ileus requiring nasogastric decompression but he was very adamant. To facilitate total parenteral nutrition, I placed a central venous catheter over his right internal jugular vein under ultrasound guidance. He tolerated this very well. I have indicated that if his symptoms continue, nasogastric tube would have to be replaced ordered by a Gastrografin contrast study in 48 hours. His abdomen is less distended and soft. 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 Postoperative ileus. Hypokalemia ISRAEL OROZCO MD Feb 24, 2017 5:40 pm
--- NOTE | 2017-02-24 17:44 | Operative Report ---
Operative Report Date of Procedure/Surgery Feb 24, 2017 Surgeon (s) ISRAEL OROZCO MD Steamfitter Apprentice (s): N/A Post-Operative Diagnosis postoperative ileus Procedure Performed Central venous catheter placement under ultrasound guidance Description of Procedure Anesthesia Type: Block Estimated blood loss (mL): none Specimen(s) collected/removed none Description of the Procedure Indication for the procedure: This gentleman is recovering from right hemicolectomy to manage a neuroendocrine tumor of the small bowel with lymph node involvement. He has developed postoperative ileus and therefore total parenteral nutrition is required. To facilitate this, placing a central venous catheter was felt to be reasonable. Informed consent was obtained after reviewing the procedure in detail. Description of the procedure: He was placed in Trendelenburg position in his own bed and is neck prepared and draped in the usual sterile manner. Right internal jugular vein was localized using a 12 MHz ultrasound probe and a floppy guidewire introduced into the heart. Subcutaneous tract was gently dilated using a silastic sheath and a 16 cm long, centered have Martiniquais, triple lumen central venous catheter advanced using Seldinger technique. All the channels were aspirated and flushed with heparinized saline and the catheter was secured using a silk suture. A nonadherent dressing was then applied. He tolerated the procedure reasonably well. Findings of the Procedure See op report Allergies and Home Medications Allergies Coded Allergies: No Known Drug Allergies (Unverified , 02/12/17) Home Medications Sildenafil Citrate 100 Mg Tablet, 100 MG PO UD PRN for ED, (Reported) ISRAEL OROZCO MD Feb 24, 2017 5:43 pm
[2017-02-24 20:00] VITALS: BP 148/97
[2017-02-24] MEDS: ENOXAPARIN 40 MG/0.4 ML (LOVENOX) SYR SC SCH (20:53)
[2017-02-25] VITALS: BP 150/89
[2017-02-25] MEDS: LACTATED RINGERS 1,000 ML IV SCH (00:27)
[2017-02-25] MEDS: METOCLOPRAMIDE INJ 10 MG/2 ML (REGLAN) IVP SCH ×5 (00:27→23:13)
[2017-02-25 04:00] VITALS: BP 139/90
[2017-02-25 06:06] LABS: ALANINE AMINOTRANSFERASE 27 U/L (0-55); ALBUMIN 3.2 GM/DL (3.2-4.5); ANION GAP 6 MMOL/L (5-14); ASPARTATE AMINO TRANSFERASE 34 U/L (5-34); BILIRUBIN,TOTAL 0.5 MG/DL (0.1-1.0); BLOOD UREA NITROGEN 14 MG/DL (7-18); BUN/CREATININE RATIO 15; CALCIUM 8.4 MG/DL (8.5-10.1); CARBON DIOXIDE 29 MMOL/L (21-32); CHLORIDE 102 MMOL/L (98-107); CREATININE SERUM 0.91 MG/DL (0.60-1.30); GFR ESTIMATED > 60; GLUCOSE 109 MG/DL (70-105); MAGNESIUM 1.9 MG/DL (1.8-2.4); PHOSPHORUS 2.7 MG/DL (2.3-4.7); POTASSIUM 3.9 MMOL/L (3.6-5.0); SODIUM 137 MMOL/L (135-145); TOTAL PROTEIN 5.8 GM/DL (6.4-8.2)
[2017-02-25 08:00] VITALS: BP 151/96
[2017-02-25] MEDS: PANTOPRAZOLE 40 MG/10 ML (PROTONIX) VIAL IV SCH ×2 (08:15→19:58)
[2017-02-25] MEDS: ONDANSETRON 4 MG/2 ML (SDV) Z0FRAN IVP PRN ×3 (10:46→16:31)
[2017-02-25 12:00] VITALS: BP 145/92
--- NOTE | 2017-02-25 15:08 | Progress Note-Standard ---
Standard Progress Note Progress Notes/Assess & Plan Date Seen by Provider: Feb 25, 2017 Time Seen by Provider: 11:58 Progress/Assessment & Plan poor motivation to move around and use incentive spirometry. Low-grade fever possibly due to postoperative atelectasis. Incisions dry. Electrolytes normal. Rodriguez catheter removed. Lungs clear. We will use Toradol in anticipation of better pain control and therefore delay starting Lovenox, to minimize the risk of iatrogenic bleeding. Could be transferred to the floor. reports difficulty emptying his bladder with very minimal residual urine by ultrasound examination. Slight abdominal distention with hiccups. Low-grade fever. Lungs clear. We will resume IV fluids and allow just ice chips. White cell count slightly elevated, we'll continue to observe. passed flatus. Feels bloated but abdomen soft. Afebrile. We'll continue to use Reglan and IV fluids. developed nausea and vomiting last night requiring nasogastric tube placement. More than 2 L of bilious fluid suctioned out. Unable to tolerate nasogastric tube with constant gag reflex. Radiologically the tip of the NG tube is at the proximal body of the stomach. I, physically tried to advance it but he would not tolerate and therefore the tube was removed. I have reviewed the pathophysiology of postoperative ileus requiring nasogastric decompression but he was very adamant. To facilitate total parenteral nutrition, I placed a central venous catheter over his right internal jugular vein under ultrasound guidance. He tolerated this very well. I have indicated that if his symptoms continue, nasogastric tube would have to be replaced ordered by a Gastrografin contrast study in 48 hours. His abdomen is less distended and soft. No more nausea or vomiting. Reports having had several bowel movements. Abdomen soft and nontender. We'll continue TPN for now clear liquid diet. Final Diagnosis Neuroendocrine tumor of small bowel. ISRAEL OROZCO MD Feb 25, 2017 3:08 pm
[2017-02-25 16:59] VITALS: BP 153/95
[2017-02-25] MEDS ORDERED: ONDANSETRON 4 MG/2 ML (SDV) Z0FRAN IVP NR (17:00)
[2017-02-25] MEDS: POTASSIUM CHLORIDE IV SCH ×10 (18:06)
[2017-02-25] MEDS: [UNRECOGNIZED DRUG - OTHER] IV SCH ×10 (18:06)
[2017-02-25] MEDS: SODIUM CHLORIDE IV SCH ×10 (18:06)
[2017-02-25] MEDS ORDERED: ONDANSETRON 4 MG/2 ML (SDV) Z0FRAN IVP PRN (19:30)
[2017-02-25] MEDS: ENOXAPARIN 40 MG/0.4 ML (LOVENOX) SYR SC SCH (19:58)
[2017-02-25 20:00] VITALS: BP 144/83
[2017-02-26] VITALS (75 sets, daily range): BP systolic 92–141; BP diastolic 67–96
[2017-02-26] MEDS ORDERED: PROMETHAZINE INJ 25 MG/ML (PHENERGAN) AMP IVP PRN (00:15)
[2017-02-26] MEDS ORDERED: ACETAMINOPHEN 500 MG TAB (TYLENOL) PO PRN (00:15)
[2017-02-26] MEDS ORDERED: NS (IVPB) 50 ML ONE ×2 (01:47→03:28)
[2017-02-26] MEDS ORDERED: MIDAZOLAM 2 MG/2 ML (VERSED) VIAL ONE (01:54)
[2017-02-26] MEDS ORDERED: proPOfol 200 MG/20 ML (DIPRIVAN) VIAL IV ONE (01:54)
--- NOTE | 2017-02-26 02:37 | Anesthesia-Procedure Note ---
Procedure Start/Stop Time Date of Procedure: Feb 26, 2017 Start Time: 02:05 Brief History [id number] Called to ICU 6 to assist with sedation for NG tube placement. Patient had a colon resection on 02/20/17. I interviewed patient, reviewed history, and obtained consent. Versed 2 mg IV given initially, followed by a slow push of Propofol until the patient was sedated enough for BERTA Saleh to place 16F NG down his left nare. Patient tolerated well and there was an immediate return of 300cc of dark brown fluid with a foul smell. A total of 100mg Propofol IV given total. Patient was then started on a Precedex gtt /EICU orders for the night. The sedation was done with etco2 monitoring. All VSS. O2 will remain at 2L/NC. We will be available for further consultation if necessary. Jeannette Polk CRNA Stop Time: 02:20 CARLY POLK CRNA Feb 26, 2017 02:37
[2017-02-26] MEDS ORDERED: DEXMEDETOMIDINE INJECTION 400 MCG in NS (IVPB) 100 ML IV SCH (03:00)
[2017-02-26 05:03] LABS: BASOPHILS % (AUTO) 0 % (0-10); EOSINOPHILS # (AUTO) 0.2 10^3/uL (0.0-0.3); EOSINOPHILS % (AUTO) 3 % (0-10); LYMPHOCYTES # (AUTO) 0.7 X 10^3 (1.0-4.0); LYMPHOCYTES % (AUTO) 8 % (12-44); MEAN CORPUSCULAR HEMOGLOBIN 30 PG (25-34); MEAN CORPUSCULAR HGB CONC 34 G/DL (32-36); MEAN CORPUSCULAR VOLUME 88 FL (80-99); MEAN PLATELET VOLUME 10.1 FL (7.4-10.4); MONOCYTES # (AUTO) 1.3 X 10^3 (0.0-1.0); MONOCYTES % (AUTO) 14 % (0-12); NEUTROPHILS # (AUTO) 7.3 X 10^3 (1.8-7.8); NEUTROPHILS % (AUTO) 76 % (42-75); PLATELET COUNT 315 10^3/uL (130-400); RED BLOOD COUNT 3.99 10^6/uL (4.35-5.85); RED CELL DISTRIBUTION WIDTH 12.7 % (10.0-14.5); WHITE BLOOD COUNT 9.6 10^3/uL (4.3-11.0)
[2017-02-26] MEDS ORDERED: ATROPINE INJECTION 1 MG/10 ML SYR (ABBOTT) ONE (05:23)
[2017-02-26 05:32] LABS: ANION GAP 10 MMOL/L (5-14); BLOOD UREA NITROGEN 20 MG/DL (7-18); BUN/CREATININE RATIO 22; CALCIUM 8.4 MG/DL (8.5-10.1); CARBON DIOXIDE 23 MMOL/L (21-32); CHLORIDE 106 MMOL/L (98-107); CREATININE SERUM 0.93 MG/DL (0.60-1.30); GFR ESTIMATED > 60; GLUCOSE 123 MG/DL (70-105); MAGNESIUM 2.8 MG/DL (1.8-2.4); PHOSPHORUS 3.8 MG/DL (2.3-4.7); POTASSIUM 4.2 MMOL/L (3.6-5.0); SODIUM 139 MMOL/L (135-145)
[2017-02-26] MEDS: MAGNESIUM 1 GM/100 ML IVPB 100 ML IV SCH (06:04)
[2017-02-26] MEDS: POTASSIUM CL 10MEQ/50ML IVPB 50 ML IV SCH (06:04)
[2017-02-26] MEDS ORDERED: LACTATED RINGERS 1,000 ML IV ONE ×2 (06:15→07:30)
[2017-02-26] MEDS: METOCLOPRAMIDE INJ 10 MG/2 ML (REGLAN) IVP SCH ×3 (06:34→17:40)
[2017-02-26] MEDS: LACTATED RINGERS 1,000 ML IV SCH ×3 (06:35→16:26)
[2017-02-26] MEDS ORDERED: DEXMEDETOMIDINE IV SCH (07:15)
[2017-02-26] MEDS ORDERED: NS IV SCH (07:15)
[2017-02-26] MEDS ORDERED: DIATRIZOATE MEGLUM/SODIUM 37% 120 ML (GASTROGRAFIN) RC ONE (09:00)
[2017-02-26] MEDS ORDERED: IOHEXOL 350 MG/ML 100 ML (OMNIPAQUE 350) VIAL IV ONE (09:00)
[2017-02-26] MEDS ORDERED: CATHETER FLUSH 10 ML SYR IV PRN (09:00)
[2017-02-26] MEDS ORDERED: NS 100 ML (IVPB) BAG IV ONE (09:00)
[2017-02-26] MEDS: PANTOPRAZOLE 40 MG/10 ML (PROTONIX) VIAL IV SCH ×2 (09:31→20:23)
[2017-02-26] MEDS: DEXMEDETOMIDINE INJECTION 200 MCG in NS (IVPB) 50 ML IV SCH ×3 (09:33→20:23)
--- NOTE | 2017-02-26 09:54 | Diagnostic Imaging Report ---
Portable upright radiograph of the chest. INDICATION: Shortness of breath. FINDINGS: There is a right internal jugular venous line tip at the SVC level. Borderline cardiac size seen. There is an NG tube in place. Minimal bibasilar atelectasis is seen. No effusion or pneumothorax. The mediastinum and jemma appear unremarkable. IMPRESSION: Minimal bibasilar atelectasis. Dictated by: Dictated on workstation # [id number]
--- NOTE | 2017-02-26 12:03 | Diagnostic Imaging Report ---
PROCEDURE: CT abdomen and pelvis with contrast. TECHNIQUE: Multiple contiguous axial images were obtained through the abdomen and pelvis after administration of intravenous contrast. INDICATION: Vomiting. The patient is status post right hemicolectomy with ileocolic anastomosis. 100 mL of Omnipaque 350 is administered intravenously. FINDINGS: Subsegmental basilar atelectasis in the lungs seen. There is an NG tube in place seen in the distal stomach. There is dilatation of small bowel loops with air-fluid levels with no findings to suggest mechanical obstruction. The findings are in favor of ileus. The site over the anastomosis in the upper right side of the abdomen demonstrates expected postoperative stranding with no fluid collection or evidence of leakage. No significant free fluid or hematoma in the abdomen or pelvis is seen. Rectal contrast distends the colon with no contrast leakage from the site of the anastomosis. There is minimal contrast refluxing through the anastomosis into the distal ileum. In the distal aspect of the transverse colon there is circumferential focal thickening seen. It is uncertain if this is related to a mucosal lesion or colonic spasm. The liver, the gallbladder, the spleen, the adrenal glands, and the pancreas appear unremarkable. The kidneys have symmetric enhancement and contrast excretion. There is a cyst measuring 3 cm in the posterior aspect of the left kidney. No hydronephrosis. The abdominal aorta is normal in caliber. No para-aortic significantly enlarged lymph node is seen. There is a Rodriguez catheter decompressing the urinary bladder. The osseous structures appear grossly unremarkable. IMPRESSION: 1. Findings suggestive of postoperative ileus. No evidence of mechanical obstruction. The anastomosis appears intact. 2. Focal area of circumstantial thickening in the distal transverse colon may relate to a mucosal lesion or colonic spasm. Colonoscopy evaluation is recommended. 3. Bibasilar subsegmental atelectasis. Dictated by: Dictated on workstation # [id number]
--- NOTE | 2017-02-26 12:25 | Progress Note-Standard ---
Standard Progress Note Progress Notes/Assess & Plan Date Seen by Provider: Feb 26, 2017 Time Seen by Provider: 09:05 Progress/Assessment & Plan poor motivation to move around and use incentive spirometry. Low-grade fever possibly due to postoperative atelectasis. Incisions dry. Electrolytes normal. Rodriguez catheter removed. Lungs clear. We will use Toradol in anticipation of better pain control and therefore delay starting Lovenox, to minimize the risk of iatrogenic bleeding. Could be transferred to the floor. reports difficulty emptying his bladder with very minimal residual urine by ultrasound examination. Slight abdominal distention with hiccups. Low-grade fever. Lungs clear. We will resume IV fluids and allow just ice chips. White cell count slightly elevated, we'll continue to observe. passed flatus. Feels bloated but abdomen soft. Afebrile. We'll continue to use Reglan and IV fluids. developed nausea and vomiting last night requiring nasogastric tube placement. More than 2 L of bilious fluid suctioned out. Unable to tolerate nasogastric tube with constant gag reflex. Radiologically the tip of the NG tube is at the proximal body of the stomach. I, physically tried to advance it but he would not tolerate and therefore the tube was removed. I have reviewed the pathophysiology of postoperative ileus requiring nasogastric decompression but he was very adamant. To facilitate total parenteral nutrition, I placed a central venous catheter over his right internal jugular vein under ultrasound guidance. He tolerated this very well. I have indicated that if his symptoms continue, nasogastric tube would have to be replaced ordered by a Gastrografin contrast study in 48 hours. His abdomen is less distended and soft. No more nausea or vomiting. Reports having had several bowel movements. Abdomen soft and nontender. We'll continue TPN for now clear liquid diet. developed recurrent nausea advance severe vomiting. Nasogastric tube has been placed under sedation. Afebrile. Electrolytes normal. Mechanical obstruction is to be ruled out and therefore CT scan will be obtained. Final Diagnosis postoperative nausea vomiting. Carcinoid tumor of the small bowel ISRAEL OROZCO MD Feb 26, 2017 12:25 pm
[2017-02-26] MEDS: POTASSIUM CHLORIDE IV SCH ×9 (17:40)
[2017-02-26] MEDS: SODIUM CHLORIDE IV SCH ×9 (17:40)
[2017-02-26] MEDS: [UNRECOGNIZED DRUG - OTHER] IV SCH ×9 (17:40)
[2017-02-26] MEDS ORDERED: NS IV NR ×2 (19:30)
[2017-02-26] MEDS ORDERED: VANCOMYCIN IV NR ×2 (19:30)
[2017-02-26] MEDS: ENOXAPARIN 40 MG/0.4 ML (LOVENOX) SYR SC SCH (20:23)
[2017-02-26] MEDS: metroNIDAZOLE 500MG/100ML IVPB 100 ML IV SCH (23:57)
[2017-02-27] VITALS (19 sets, daily range): BP systolic 119–144; BP diastolic 76–91
[2017-02-27] MEDS: DEXMEDETOMIDINE INJECTION 200 MCG in NS (IVPB) 50 ML IV SCH ×6 (02:00→23:41)
[2017-02-27 04:31] LABS: BASOPHILS % (AUTO) 0 % (0-10); EOSINOPHILS # (AUTO) 0.6 10^3/uL (0.0-0.3); EOSINOPHILS % (AUTO) 8 % (0-10); LYMPHOCYTES # (AUTO) 0.9 X 10^3 (1.0-4.0); LYMPHOCYTES % (AUTO) 12 % (12-44); MEAN CORPUSCULAR HEMOGLOBIN 30 PG (25-34); MEAN CORPUSCULAR HGB CONC 34 G/DL (32-36); MEAN CORPUSCULAR VOLUME 87 FL (80-99); MONOCYTES # (AUTO) 1.3 X 10^3 (0.0-1.0); MONOCYTES % (AUTO) 17 % (0-12); NEUTROPHILS # (AUTO) 4.7 X 10^3 (1.8-7.8); NEUTROPHILS % (AUTO) 62 % (42-75); PLATELET COUNT 301 10^3/uL (130-400); RED BLOOD COUNT 4.06 10^6/uL (4.35-5.85); RED CELL DISTRIBUTION WIDTH 12.6 % (10.0-14.5); WHITE BLOOD COUNT 7.5 10^3/uL (4.3-11.0)
[2017-02-27 04:56] LABS: ALANINE AMINOTRANSFERASE 89 U/L (0-55); ALBUMIN 3.2 GM/DL (3.2-4.5); ANION GAP 9 MMOL/L (5-14); ASPARTATE AMINO TRANSFERASE 45 U/L (5-34); BLOOD UREA NITROGEN 18 MG/DL (7-18); BUN/CREATININE RATIO 22; CALCIUM 8.3 MG/DL (8.5-10.1); CARBON DIOXIDE 23 MMOL/L (21-32); CHLORIDE 107 MMOL/L (98-107); CREATININE SERUM 0.81 MG/DL (0.60-1.30); GFR ESTIMATED > 60; GLUCOSE 105 MG/DL (70-105); MAGNESIUM 1.9 MG/DL (1.8-2.4); PHOSPHORUS 3.2 MG/DL (2.3-4.7); POTASSIUM 4.1 MMOL/L (3.6-5.0); SODIUM 139 MMOL/L (135-145); TOTAL PROTEIN 5.8 GM/DL (6.4-8.2); TRIGLYCERIDES 117 MG/DL (<150)
[2017-02-27] MEDS: LACTATED RINGERS 1,000 ML IV SCH (06:23)
[2017-02-27] MEDS: MAGNESIUM 1 GM/100 ML IVPB 100 ML IV SCH (06:42)
[2017-02-27] MEDS: POTASSIUM CL 10MEQ/50ML IVPB 50 ML IV SCH (06:42)
--- NOTE | 2017-02-27 07:02 | Progress Note-Standard ---
Standard Progress Note Progress Notes/Assess & Plan Date Seen by Provider: Feb 27, 2017 Time Seen by Provider: 07:01 Progress/Assessment & Plan poor motivation to move around and use incentive spirometry. Low-grade fever possibly due to postoperative atelectasis. Incisions dry. Electrolytes normal. Rodriguez catheter removed. Lungs clear. We will use Toradol in anticipation of better pain control and therefore delay starting Lovenox, to minimize the risk of iatrogenic bleeding. Could be transferred to the floor. reports difficulty emptying his bladder with very minimal residual urine by ultrasound examination. Slight abdominal distention with hiccups. Low-grade fever. Lungs clear. We will resume IV fluids and allow just ice chips. White cell count slightly elevated, we'll continue to observe. passed flatus. Feels bloated but abdomen soft. Afebrile. We'll continue to use Reglan and IV fluids. developed nausea and vomiting last night requiring nasogastric tube placement. More than 2 L of bilious fluid suctioned out. Unable to tolerate nasogastric tube with constant gag reflex. Radiologically the tip of the NG tube is at the proximal body of the stomach. I, physically tried to advance it but he would not tolerate and therefore the tube was removed. I have reviewed the pathophysiology of postoperative ileus requiring nasogastric decompression but he was very adamant. To facilitate total parenteral nutrition, I placed a central venous catheter over his right internal jugular vein under ultrasound guidance. He tolerated this very well. I have indicated that if his symptoms continue, nasogastric tube would have to be replaced ordered by a Gastrografin contrast study in 48 hours. His abdomen is less distended and soft. No more nausea or vomiting. Reports having had several bowel movements. Abdomen soft and nontender. We'll continue TPN for now clear liquid diet. developed recurrent nausea advance severe vomiting. Nasogastric tube has been placed under sedation. Afebrile. Electrolytes normal. Mechanical obstruction is to be ruled out and therefore CT scan will be obtained. CT negative for any mechanical obstruction. Anastomosis wide open. No anastomotic leak abscess. Cellulitis around the left-sided abdomen possibly precipitated by a blister from one of the trocar incisions. On IV antibiotics. Appears to be contained. Encouraged ambulation. Nasogastric tube to stay. 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 Postoperative ileus. ISRAEL OROZCO MD Feb 27, 2017 7:01 am
[2017-02-27] MEDS: metroNIDAZOLE 500MG/100ML IVPB 100 ML IV SCH ×3 (07:48→21:21)
[2017-02-27] MEDS: METOCLOPRAMIDE INJ 10 MG/2 ML (REGLAN) IVP SCH ×4 (07:50→18:35)
[2017-02-27] MEDS ORDERED: SCOPOLAMINE PATCH REMOVAL TP SCH (09:29)
[2017-02-27] MEDS: SODIUM CHLORIDE IV SCH ×13 (09:43→18:36)
[2017-02-27] MEDS: PANTOPRAZOLE 40 MG/10 ML (PROTONIX) VIAL IV SCH ×2 (09:43→21:21)
[2017-02-27] MEDS: VANCOMYCIN IV SCH ×4 (09:43→18:35)
[2017-02-27] MEDS: POTASSIUM CHLORIDE IV SCH ×9 (18:36)
[2017-02-27] MEDS: [UNRECOGNIZED DRUG - OTHER] IV SCH ×9 (18:36)
[2017-02-27] MEDS: ENOXAPARIN 40 MG/0.4 ML (LOVENOX) SYR SC SCH (21:21)
[2017-02-28] VITALS (11 sets, daily range): BP systolic 117–154; BP diastolic 69–89
[2017-02-28] MEDS: METOCLOPRAMIDE INJ 10 MG/2 ML (REGLAN) IVP SCH ×4 (00:02→18:35)
[2017-02-28] MEDS: DEXMEDETOMIDINE INJECTION 200 MCG in NS (IVPB) 50 ML IV SCH ×4 (03:09→21:44)
[2017-02-28] MEDS: LACTATED RINGERS 1,000 ML IV SCH ×2 (03:18→06:42)
[2017-02-28] MEDS: metroNIDAZOLE 500MG/100ML IVPB 100 ML IV SCH ×3 (05:46→21:03)
[2017-02-28 05:58] LABS: BASOPHILS % (AUTO) 0 % (0-10); EOSINOPHILS # (AUTO) 0.6 10^3/uL (0.0-0.3); EOSINOPHILS % (AUTO) 6 % (0-10); LYMPHOCYTES # (AUTO) 1.1 X 10^3 (1.0-4.0); LYMPHOCYTES % (AUTO) 11 % (12-44); MEAN CORPUSCULAR HEMOGLOBIN 30 PG (25-34); MEAN CORPUSCULAR HGB CONC 35 G/DL (32-36); MEAN CORPUSCULAR VOLUME 87 FL (80-99); MONOCYTES # (AUTO) 1.1 X 10^3 (0.0-1.0); MONOCYTES % (AUTO) 11 % (0-12); NEUTROPHILS # (AUTO) 7.1 X 10^3 (1.8-7.8); NEUTROPHILS % (AUTO) 72 % (42-75); PLATELET COUNT 302 10^3/uL (130-400); RED BLOOD COUNT 3.98 10^6/uL (4.35-5.85); RED CELL DISTRIBUTION WIDTH 12.5 % (10.0-14.5); WHITE BLOOD COUNT 9.9 10^3/uL (4.3-11.0)
[2017-02-28] MEDS ORDERED: TROUGH ORDER-PHARMACY XX NR (06:00)
[2017-02-28 06:18] LABS: ANION GAP 8 MMOL/L (5-14); BLOOD UREA NITROGEN 19 MG/DL (7-18); BUN/CREATININE RATIO 26; CARBON DIOXIDE 22 MMOL/L (21-32); CHLORIDE 107 MMOL/L (98-107); CREATININE SERUM 0.74 MG/DL (0.60-1.30); GFR ESTIMATED > 60; GLUCOSE 118 MG/DL (70-105); MAGNESIUM 1.9 MG/DL (1.8-2.4); PHOSPHORUS 3.4 MG/DL (2.3-4.7); POTASSIUM 3.9 MMOL/L (3.6-5.0); SODIUM 137 MMOL/L (135-145)
[2017-02-28] MEDS: POTASSIUM CL 10MEQ/50ML IVPB 50 ML IV SCH (06:45)
[2017-02-28] MEDS: MAGNESIUM 1 GM/100 ML IVPB 100 ML IV SCH (06:45)
[2017-02-28] MEDS: VANCOMYCIN IV SCH ×2 (06:57)
[2017-02-28] MEDS: SODIUM CHLORIDE IV SCH ×11 (06:57→18:36)
[2017-02-28] MEDS ORDERED: VANCOMYCIN INJECTION 2,000 MG in NS IV 500 ML 500 ML IV SCH (07:30)
[2017-02-28] MEDS: PANTOPRAZOLE 40 MG/10 ML (PROTONIX) VIAL IV SCH ×2 (08:42→21:03)
--- NOTE | 2017-02-28 10:24 | Progress Note-Standard ---
Standard Progress Note Progress Notes/Assess & Plan Date Seen by Provider: Feb 28, 2017 Time Seen by Provider: 10:23 Progress/Assessment & Plan poor motivation to move around and use incentive spirometry. Low-grade fever possibly due to postoperative atelectasis. Incisions dry. Electrolytes normal. Rodriguez catheter removed. Lungs clear. We will use Toradol in anticipation of better pain control and therefore delay starting Lovenox, to minimize the risk of iatrogenic bleeding. Could be transferred to the floor. reports difficulty emptying his bladder with very minimal residual urine by ultrasound examination. Slight abdominal distention with hiccups. Low-grade fever. Lungs clear. We will resume IV fluids and allow just ice chips. White cell count slightly elevated, we'll continue to observe. passed flatus. Feels bloated but abdomen soft. Afebrile. We'll continue to use Reglan and IV fluids. developed nausea and vomiting last night requiring nasogastric tube placement. More than 2 L of bilious fluid suctioned out. Unable to tolerate nasogastric tube with constant gag reflex. Radiologically the tip of the NG tube is at the proximal body of the stomach. I, physically tried to advance it but he would not tolerate and therefore the tube was removed. I have reviewed the pathophysiology of postoperative ileus requiring nasogastric decompression but he was very adamant. To facilitate total parenteral nutrition, I placed a central venous catheter over his right internal jugular vein under ultrasound guidance. He tolerated this very well. I have indicated that if his symptoms continue, nasogastric tube would have to be replaced ordered by a Gastrografin contrast study in 48 hours. His abdomen is less distended and soft. No more nausea or vomiting. Reports having had several bowel movements. Abdomen soft and nontender. We'll continue TPN for now clear liquid diet. developed recurrent nausea advance severe vomiting. Nasogastric tube has been placed under sedation. Afebrile. Electrolytes normal. Mechanical obstruction is to be ruled out and therefore CT scan will be obtained. CT negative for any mechanical obstruction. Anastomosis wide open. No anastomotic leak abscess. Cellulitis around the left-sided abdomen possibly precipitated by a blister from one of the trocar incisions. On IV antibiotics. Appears to be contained. Encouraged ambulation. Nasogastric tube to stay. Passing stools. Negligible output from the NG tube. No abdominal distention. Cellulitis of the left side of the abdominal wall improved. We will clamp the NG tube and observed for now. 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 Postoperative ileus ISRAEL OROZCO MD Feb 28, 2017 10:24 am
[2017-02-28] MEDS: VANCOMYCIN INJECTION 2,000 MG in NS IV 500 ML 500 ML IV SCH (18:35)
[2017-02-28] MEDS: POTASSIUM CHLORIDE IV SCH ×9 (18:36)
[2017-02-28] MEDS: [UNRECOGNIZED DRUG - OTHER] IV SCH ×9 (18:36)
[2017-02-28] MEDS: ENOXAPARIN 40 MG/0.4 ML (LOVENOX) SYR SC SCH (21:03)
[2017-03-01] VITALS (8 sets, daily range): BP systolic 135–162; BP diastolic 80–93
[2017-03-01] MEDS: DEXMEDETOMIDINE INJECTION 200 MCG in NS (IVPB) 50 ML IV SCH ×2 (03:55→08:17)
[2017-03-01] MEDS: METOCLOPRAMIDE INJ 10 MG/2 ML (REGLAN) IVP SCH ×5 (05:52→23:31)
[2017-03-01] MEDS: LACTATED RINGERS 1,000 ML IV SCH (05:52)
[2017-03-01] MEDS: VANCOMYCIN INJECTION 2,000 MG in NS IV 500 ML 500 ML IV SCH ×2 (05:52→17:53)
[2017-03-01] MEDS: metroNIDAZOLE 500MG/100ML IVPB 100 ML IV SCH ×3 (05:52→21:18)
[2017-03-01] MEDS: PANTOPRAZOLE 40 MG/10 ML (PROTONIX) VIAL IV SCH ×2 (08:35→19:48)
--- NOTE | 2017-03-01 12:20 | Progress Note ---
Subjective Time Seen by Provider: 11:33 Subjective/Events-last exam Pt seen and examined, looks good. Pt is very happy ngt is out. He denies any abdominal pain, nausea or vomiting. Tolerating sips of clears without problems. Review of Systems General: No Chills, No Night Sweats Pulmonary: No Dyspnea, No Cough Cardiovascular: No: Chest Pain Objective Exam Vital Signs Date Time Temp Pulse Resp B/P (MAP) Pulse Ox O2 Delivery O2 Flow Rate FiO2 03/01/17 10:00 98.6 72 22 154/82 (106) Room Air 03/01/17 10:00 98 Room Air 03/01/17 08:00 Room Air 03/01/17 08:00 98.6 80 22 150/88 (108) 98 Room Air 03/01/17 06:59 Room Air 03/01/17 04:00 99.8 89 135/93 (107) Room Air 03/01/17 00:00 100.0 90 19 161/80 (107) Room Air 02/28/17 20:00 99.0 96 20 145/89 (107) 98 Room Air 02/28/17 20:00 Room Air 02/28/17 19:05 Room Air 02/28/17 16:00 98.8 88 19 154/83 (106) 99 Room Air 02/28/17 14:59 Room Air 02/28/17 12:26 90 22 136/85 (102) 97 Room Air I & O 03/01/17 07:00 Intake Total 1432 ml Output Total 1100 ml Balance 332 ml Capillary Refill : Less Than 3 Seconds General Appearance: No Apparent Distress, WD/WN Respiratory: Lungs Clear, Normal Breath Sounds, No Accessory Muscle Use Cardiovascular: Regular Rate, Rhythm Gastrointestinal: non tender, soft, no organomegaly, other (incision is c/d/i) Assessment/Plan Assessment/Plan Assessment/Plan S/P R Colon resection ---pt had ileus and is improving slowly, feels much better (is smiliing) with NGT out. Continue clears and ambulation, can also chew gum (which should help with bowel motility). States he feels "bubbles" in the back of his throat....otherwise no complaints. Clinical Quality Measures DVT/VTE Risk/Contraindication: Risk Factor Score Per Nursin RFS Level Per Nursing on Admit: 3=High SUNI FAJARDO DO Mar 01, 2017 12:20
[2017-03-01] MEDS: [UNRECOGNIZED DRUG - OTHER] IV SCH ×9 (16:52)
[2017-03-01] MEDS: SODIUM CHLORIDE IV SCH ×9 (16:52)
[2017-03-01] MEDS: POTASSIUM CHLORIDE IV SCH ×9 (16:52)
[2017-03-01] MEDS ORDERED: TROUGH ORDER-PHARMACY XX NR (18:00)
[2017-03-01] MEDS: ENOXAPARIN 40 MG/0.4 ML (LOVENOX) SYR SC SCH (19:47)
[2017-03-02 03:34] VITALS: BP 129/81
[2017-03-02] MEDS: METOCLOPRAMIDE INJ 10 MG/2 ML (REGLAN) IVP SCH ×3 (05:46→17:18)
[2017-03-02] MEDS: LACTATED RINGERS 1,000 ML IV SCH (05:46)
[2017-03-02] MEDS: metroNIDAZOLE 500MG/100ML IVPB 100 ML IV SCH (05:46)
[2017-03-02] MEDS ORDERED: TROUGH ORDER-PHARMACY XX NR (06:00)
[2017-03-02] MEDS: VANCOMYCIN INJECTION 2,000 MG in NS IV 500 ML 500 ML IV SCH (06:34)
[2017-03-02 07:49] VITALS: BP 145/89
[2017-03-02] MEDS: PANTOPRAZOLE 40 MG/10 ML (PROTONIX) VIAL IV SCH (08:08)
--- NOTE | 2017-03-02 11:16 | Progress Note-Standard ---
Standard Progress Note Progress Notes/Assess & Plan Date Seen by Provider: Mar 02, 2017 Time Seen by Provider: 10:40 Progress/Assessment & Plan poor motivation to move around and use incentive spirometry. Low-grade fever possibly due to postoperative atelectasis. Incisions dry. Electrolytes normal. Rodriguez catheter removed. Lungs clear. We will use Toradol in anticipation of better pain control and therefore delay starting Lovenox, to minimize the risk of iatrogenic bleeding. Could be transferred to the floor. reports difficulty emptying his bladder with very minimal residual urine by ultrasound examination. Slight abdominal distention with hiccups. Low-grade fever. Lungs clear. We will resume IV fluids and allow just ice chips. White cell count slightly elevated, we'll continue to observe. passed flatus. Feels bloated but abdomen soft. Afebrile. We'll continue to use Reglan and IV fluids. developed nausea and vomiting last night requiring nasogastric tube placement. More than 2 L of bilious fluid suctioned out. Unable to tolerate nasogastric tube with constant gag reflex. Radiologically the tip of the NG tube is at the proximal body of the stomach. I, physically tried to advance it but he would not tolerate and therefore the tube was removed. I have reviewed the pathophysiology of postoperative ileus requiring nasogastric decompression but he was very adamant. To facilitate total parenteral nutrition, I placed a central venous catheter over his right internal jugular vein under ultrasound guidance. He tolerated this very well. I have indicated that if his symptoms continue, nasogastric tube would have to be replaced ordered by a Gastrografin contrast study in 48 hours. His abdomen is less distended and soft. No more nausea or vomiting. Reports having had several bowel movements. Abdomen soft and nontender. We'll continue TPN for now clear liquid diet. developed recurrent nausea advance severe vomiting. Nasogastric tube has been placed under sedation. Afebrile. Electrolytes normal. Mechanical obstruction is to be ruled out and therefore CT scan will be obtained. CT negative for any mechanical obstruction. Anastomosis wide open. No anastomotic leak abscess. Cellulitis around the left-sided abdomen possibly precipitated by a blister from one of the trocar incisions. On IV antibiotics. Appears to be contained. Encouraged ambulation. Nasogastric tube to stay. Passing stools. Negligible output from the NG tube. No abdominal distention. Cellulitis of the left side of the abdominal wall improved. We will clamp the NG tube and observed for now. NG removed yesterday. No setbacks. Abdomen soft. Cellulitis over the left side of the abdominal wall resolved and antibiotics would be stopped. Will advance diet and possibly discharge this evening. I have discussed with Dr. 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
[2017-03-02 11:50] VITALS: BP 154/88
[2017-03-02 15:40] VITALS: BP 137/78
--- NOTE | 2017-03-02 19:20 | Discharge Inst-Simple/Standard ---
Discharge Inst-Standard Discharge Medications New, Converted or Re-Newed RX: Other Patient Instructions/Follow Up Plan of Care/Instructions/FU: Please remove the central line. Follow-up with me in 3 weeks. Activity as Tolerated: No Goal: No lifting or pushing Discharge Diet: Soft Diet ISRAEL OROZCO MD Mar 02, 2017 7:20 pm
[2017-03-02 19:22] VITALS: BP 143/85
--- NOTE | 2017-03-02 19:23 | Discharge Summary ---
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 Further evaluation and right hemicolectomy have confirmed carcinoid tumor of the small bowel with metastatic lymph nodes. All the margins had been negative. His recovery has been slow due to postoperative ileus, which has since resolved. At the time of discharge , he is tolerating a soft diet and having liquid bowel movements. Cellulitis along the lesser abdomen was managed with intravenous antibiotics and has since resolved. He has been referred to Dr. Aden, our oncologist for discussions regarding adjuvant management options. He'll be followed up in my office in 3 weeks. Discharge Summary Procedures robotic assisted right hemicolectomy with anastomosis Discharge Physical Examination Allergies: Coded Allergies: Pork/Porcine Containing Products (Verified Allergy, Severe, ANAPHYLAXIS, 02/24/17) Uncoded Allergies: DEEP FRIED FOODS (Allergy, Intermediate, 02/24/17) Vitals & I&Os Vital Signs Date Time Temp Pulse Resp B/P (MAP) Pulse Ox O2 Delivery O2 Flow Rate FiO2 03/02/17 15:40 99.2 88 18 137/78 (97) 97 Room Air 02/26/17 16:00 2.00 Hospital Course Labs (last 24 hrs) Laboratory Tests 02/21/17 04:33: Sodium Level 134L, Potassium Level 4.0, Chloride Level 101, Carbon Dioxide Level 23, Anion Gap 10, Blood Urea Nitrogen 12, Creatinine 1.24, Estimat Glomerular Filtration Rate > 60, BUN/Creatinine Ratio 10, Glucose Level 119H, Calcium Level 8.7 02/22/17 10:25: White Blood Count 12.0H, Red Blood Count 4.58, Hemoglobin 13.6, Hematocrit 40, Mean Corpuscular Volume 88, Mean Corpuscular Hemoglobin 30, Mean Corpuscular Hemoglobin Concent 34, Red Cell Distribution Width 13.0, Platelet Count 267, Mean Platelet Volume 10.3, Neutrophils (%) (Auto) 82H, Lymphocytes (%) (Auto) 6L , Monocytes (%) (Auto) 10, Eosinophils (%) (Auto) 2, Basophils (%) (Auto) 0, Neutrophils # (Auto) 9.8H, Lymphocytes # (Auto) 0.8L, Monocytes # (Auto) 1.2H, Eosinophils # (Auto) 0.2, Basophils # (Auto) 0.0, Neutrophils % (Manual) 91, Lymphocytes % (Manual) 4, Monocytes % (Manual) 3, Eosinophils % (Manual) 2, Basophils % (Manual) 0, Band Neutrophils 0, Blood Morphology Comment NORMAL 02/24/17 05:45: Sodium Level 138, Potassium Level 3.3L, Chloride Level 94L, Carbon Dioxide Level 30, Anion Gap 14, Blood Urea Nitrogen 9, Creatinine 0.93, Estimat Glomerular Filtration Rate > 60, BUN/Creatinine Ratio 10, Glucose Level 114H, Calcium Level 9.1, White Blood Count 11.7H, Red Blood Count 4.41, Hemoglobin 13.1L, Hematocrit 38L, Mean Corpuscular Volume 86, Mean Corpuscular Hemoglobin 30, Mean Corpuscular Hemoglobin Concent 35, Red Cell Distribution Width 12.4, Platelet Count 299, Mean Platelet Volume 10.8H, Neutrophils (%) (Auto) 85H, Lymphocytes (%) (Auto) 5L, Monocytes (%) (Auto) 9, Eosinophils (%) (Auto) 1, Basophils (%) (Auto) 0, Neutrophils # (Auto) 9.9H, Lymphocytes # (Auto) 0.6L, Monocytes # (Auto) 1.0, Eosinophils # (Auto) 0.1, Basophils # (Auto) 0.0, Prothrombin Time 14.2, INR Comment 1.1, Phosphorus Level 3.5, Magnesium Level 2.0, Prealbumin 10.3L, Triglycerides Level 108 02/25/17 05:20: Sodium Level 137, Potassium Level 3.9, Chloride Level 102, Carbon Dioxide Level 29, Anion Gap 6, Blood Urea Nitrogen 14, Creatinine 0.91, Estimat Glomerular Filtration Rate > 60, BUN/Creatinine Ratio 15, Glucose Level 109H, Calcium Level 8.4L, Phosphorus Level 2.7, Magnesium Level 1.9, Total Bilirubin 0.5, Aspartate Amino Transf (AST/SGOT) 34, Alanine Aminotransferase (ALT/SGPT) 27, Alkaline Phosphatase 66, Total Protein 5.8L, Albumin 3.2 02/25/17 23:12: Glucometer 116H 02/26/17 04:50: White Blood Count 9.6, Red Blood Count 3.99L, Hemoglobin 11.9L, Hematocrit 35L, Mean Corpuscular Volume 88, Mean Corpuscular Hemoglobin 30, Mean Corpuscular Hemoglobin Concent 34, Red Cell Distribution Width 12.7, Platelet Count 315, Mean Platelet Volume 10.1, Neutrophils (%) (Auto) 76H, Lymphocytes (%) (Auto) 8L , Monocytes (%) (Auto) 14H, Eosinophils (%) (Auto) 3, Basophils (%) (Auto) 0, Neutrophils # (Auto) 7.3, Lymphocytes # (Auto) 0.7L, Monocytes # (Auto) 1.3H, Eosinophils # (Auto) 0.2, Basophils # (Auto) 0.0, Sodium Level 139, Potassium Level 4.2, Chloride Level 106, Carbon Dioxide Level 23, Anion Gap 10, Blood Urea Nitrogen 20H, Creatinine 0.93, Estimat Glomerular Filtration Rate > 60, BUN /Creatinine Ratio 22, Glucose Level 123H, Calcium Level 8.4L, Phosphorus Level 3.8, Magnesium Level 2.8H 02/26/17 12:37: Glucometer 117H 02/26/17 17:54: Glucometer 114H 02/27/17 04:23: White Blood Count 7.5, Red Blood Count 4.06L, Hemoglobin 12.1L, Hematocrit 36L, Mean Corpuscular Volume 87, Mean Corpuscular Hemoglobin 30, Mean Corpuscular Hemoglobin Concent 34, Red Cell Distribution Width 12.6, Platelet Count 301, Mean Platelet Volume 10.0, Neutrophils (%) (Auto) 62, Lymphocytes (%) (Auto) 12 , Monocytes (%) (Auto) 17H, Eosinophils (%) (Auto) 8, Basophils (%) (Auto) 0, Neutrophils # (Auto) 4.7, Lymphocytes # (Auto) 0.9L, Monocytes # (Auto) 1.3H, Eosinophils # (Auto) 0.6H, Basophils # (Auto) 0.0, Sodium Level 139, Potassium Level 4.1, Chloride Level 107, Carbon Dioxide Level 23, Anion Gap 9, Blood Urea Nitrogen 18, Creatinine 0.81, Estimat Glomerular Filtration Rate > 60, BUN/ Creatinine Ratio 22, Glucose Level 105, Calcium Level 8.3L, Phosphorus Level 3.2 , Magnesium Level 1.9, Total Bilirubin 1.0, Aspartate Amino Transf (AST/SGOT) 45H, Alanine Aminotransferase (ALT/SGPT) 89H, Alkaline Phosphatase 123, Total Protein 5.8L, Albumin 3.2, Prealbumin 16.9L, Triglycerides Level 117 02/28/17 05:50: White Blood Count 9.9, Red Blood Count 3.98L, Hemoglobin 11.9L, Hematocrit 35L, Mean Corpuscular Volume 87, Mean Corpuscular Hemoglobin 30, Mean Corpuscular Hemoglobin Concent 35, Red Cell Distribution Width 12.5, Platelet Count 302, Mean Platelet Volume 10.0, Neutrophils (%) (Auto) 72, Lymphocytes (%) (Auto) 11L , Monocytes (%) (Auto) 11, Eosinophils (%) (Auto) 6, Basophils (%) (Auto) 0, Neutrophils # (Auto) 7.1, Lymphocytes # (Auto) 1.1, Monocytes # (Auto) 1.1H, Eosinophils # (Auto) 0.6H, Basophils # (Auto) 0.0, Sodium Level 137, Potassium Level 3.9, Chloride Level 107, Carbon Dioxide Level 22, Anion Gap 8, Blood Urea Nitrogen 19H, Creatinine 0.74, Estimat Glomerular Filtration Rate > 60, BUN/ Creatinine Ratio 26, Glucose Level 118H, Calcium Level 8.0L, Phosphorus Level 3.4, Magnesium Level 1.9, Vancomycin Level Trough 9.4L 03/02/17 05:45: Vancomycin Level Trough 10.2, Glucometer 98 Pending Labs Laboratory Tests 02/21/17 04:33: Sodium Level 134, Potassium Level 4.0, Chloride Level 101, Carbon Dioxide Level 23, Anion Gap 10, Blood Urea Nitrogen 12, Creatinine 1.24, Estimat Glomerular Filtration Rate > 60, BUN/Creatinine Ratio 10, Glucose Level 119, Calcium Level 8.7 02/22/17 10:25: White Blood Count 12.0, Red Blood Count 4.58, Hemoglobin 13.6, Hematocrit 40, Mean Corpuscular Volume 88, Mean Corpuscular Hemoglobin 30, Mean Corpuscular Hemoglobin Concent 34, Red Cell Distribution Width 13.0, Platelet Count 267, Mean Platelet Volume 10.3, Neutrophils (%) (Auto) 82, Lymphocytes (%) (Auto) 6, Monocytes (%) (Auto) 10, Eosinophils (%) (Auto) 2, Basophils (%) (Auto) 0, Neutrophils # (Auto) 9.8, Lymphocytes # (Auto) 0.8, Monocytes # (Auto) 1.2, Eosinophils # (Auto) 0.2, Basophils # (Auto) 0.0, Neutrophils % (Manual) 91, Lymphocytes % (Manual) 4, Monocytes % (Manual) 3, Eosinophils % (Manual) 2, Basophils % (Manual) 0, Band Neutrophils 0, Blood Morphology Comment NORMAL 02/24/17 05:45: Sodium Level 138, Potassium Level 3.3, Chloride Level 94, Carbon Dioxide Level 30, Anion Gap 14, Blood Urea Nitrogen 9, Creatinine 0.93, Estimat Glomerular Filtration Rate > 60, BUN/Creatinine Ratio 10, Glucose Level 114, Calcium Level 9.1, White Blood Count 11.7, Red Blood Count 4.41, Hemoglobin 13.1, Hematocrit 38, Mean Corpuscular Volume 86, Mean Corpuscular Hemoglobin 30, Mean Corpuscular Hemoglobin Concent 35, Red Cell Distribution Width 12.4, Platelet Count 299, Mean Platelet Volume 10.8, Neutrophils (%) (Auto) 85, Lymphocytes (% ) (Auto) 5, Monocytes (%) (Auto) 9, Eosinophils (%) (Auto) 1, Basophils (%) ( Auto) 0, Neutrophils # (Auto) 9.9, Lymphocytes # (Auto) 0.6, Monocytes # (Auto) 1.0, Eosinophils # (Auto) 0.1, Basophils # (Auto) 0.0, Prothrombin Time 14.2, INR Comment 1.1, Phosphorus Level 3.5, Magnesium Level 2.0, Prealbumin 10.3, Triglycerides Level 108 02/25/17 05:20: Sodium Level 137, Potassium Level 3.9, Chloride Level 102, Carbon Dioxide Level 29, Anion Gap 6, Blood Urea Nitrogen 14, Creatinine 0.91, Estimat Glomerular Filtration Rate > 60, BUN/Creatinine Ratio 15, Glucose Level 109, Calcium Level 8.4, Phosphorus Level 2.7, Magnesium Level 1.9, Total Bilirubin 0.5, Aspartate Amino Transf (AST/SGOT) 34, Alanine Aminotransferase (ALT/SGPT) 27, Alkaline Phosphatase 66, Total Protein 5.8, Albumin 3.2 02/25/17 23:12: Glucometer 116 02/26/17 04:50: White Blood Count 9.6, Red Blood Count 3.99, Hemoglobin 11.9, Hematocrit 35, Mean Corpuscular Volume 88, Mean Corpuscular Hemoglobin 30, Mean Corpuscular Hemoglobin Concent 34, Red Cell Distribution Width 12.7, Platelet Count 315, Mean Platelet Volume 10.1, Neutrophils (%) (Auto) 76, Lymphocytes (%) (Auto) 8, Monocytes (%) (Auto) 14, Eosinophils (%) (Auto) 3, Basophils (%) (Auto) 0, Neutrophils # (Auto) 7.3, Lymphocytes # (Auto) 0.7, Monocytes # (Auto) 1.3, Eosinophils # (Auto) 0.2, Basophils # (Auto) 0.0, Sodium Level 139, Potassium Level 4.2, Chloride Level 106, Carbon Dioxide Level 23, Anion Gap 10, Blood Urea Nitrogen 20, Creatinine 0.93, Estimat Glomerular Filtration Rate > 60, BUN/ Creatinine Ratio 22, Glucose Level 123, Calcium Level 8.4, Phosphorus Level 3.8 , Magnesium Level 2.8 02/26/17 12:37: Glucometer 117 02/26/17 17:54: Glucometer 114 02/27/17 04:23: White Blood Count 7.5, Red Blood Count 4.06, Hemoglobin 12.1, Hematocrit 36, Mean Corpuscular Volume 87, Mean Corpuscular Hemoglobin 30, Mean Corpuscular Hemoglobin Concent 34, Red Cell Distribution Width 12.6, Platelet Count 301, Mean Platelet Volume 10.0, Neutrophils (%) (Auto) 62, Lymphocytes (%) (Auto) 12 , Monocytes (%) (Auto) 17, Eosinophils (%) (Auto) 8, Basophils (%) (Auto) 0, Neutrophils # (Auto) 4.7, Lymphocytes # (Auto) 0.9, Monocytes # (Auto) 1.3, Eosinophils # (Auto) 0.6, Basophils # (Auto) 0.0, Sodium Level 139, Potassium Level 4.1, Chloride Level 107, Carbon Dioxide Level 23, Anion Gap 9, Blood Urea Nitrogen 18, Creatinine 0.81, Estimat Glomerular Filtration Rate > 60, BUN/ Creatinine Ratio 22, Glucose Level 105, Calcium Level 8.3, Phosphorus Level 3.2 , Magnesium Level 1.9, Total Bilirubin 1.0, Aspartate Amino Transf (AST/SGOT) 45 , Alanine Aminotransferase (ALT/SGPT) 89, Alkaline Phosphatase 123, Total Protein 5.8, Albumin 3.2, Prealbumin 16.9, Triglycerides Level 117 02/28/17 05:50: White Blood Count 9.9, Red Blood Count 3.98, Hemoglobin 11.9, Hematocrit 35, Mean Corpuscular Volume 87, Mean Corpuscular Hemoglobin 30, Mean Corpuscular Hemoglobin Concent 35, Red Cell Distribution Width 12.5, Platelet Count 302, Mean Platelet Volume 10.0, Neutrophils (%) (Auto) 72, Lymphocytes (%) (Auto) 11 , Monocytes (%) (Auto) 11, Eosinophils (%) (Auto) 6, Basophils (%) (Auto) 0, Neutrophils # (Auto) 7.1, Lymphocytes # (Auto) 1.1, Monocytes # (Auto) 1.1, Eosinophils # (Auto) 0.6, Basophils # (Auto) 0.0, Sodium Level 137, Potassium Level 3.9, Chloride Level 107, Carbon Dioxide Level 22, Anion Gap 8, Blood Urea Nitrogen 19, Creatinine 0.74, Estimat Glomerular Filtration Rate > 60, BUN/ Creatinine Ratio 26, Glucose Level 118, Calcium Level 8.0, Phosphorus Level 3.4 , Magnesium Level 1.9, Vancomycin Level Trough 9.4 03/02/17 05:45: Vancomycin Level Trough 10.2, Glucometer 98 Discharge Home Medications: Active Scripts Active Reported Viagra (Sildenafil Citrate) 100 Mg Tablet 100 Mg PO UD PRN Instructions to patient/family Please see electronic discharge instructions given to patient. Clinical Quality Measures DVT/VTE Risk/Contraindication: Risk Factor Score Per Nursin RFS Level Per Nursing on Admit: 3=High ISRAEL OROZCO MD Mar 02, 2017 7:23 pm
[2017-03-02 19:50] VITALS: BP 137/83
== END 2017-03-02 19:54 | disposition home or self-care (01) | DRG 330 ==
LOC: 4TH 06:00 → SURG 06:01 → EDSTATUS 07:00 → SURG 13:31 → SURGICAL 13:31 → ICU 14:00 → 4TH 02-21 16:00 → ICU 02-26 01:24 → 4TH 03-01 10:05
PROVIDERS: ADMIT Surgery; ATTEND Surgery
PROC: 8E0W4CZ Robotic Assisted Procedure of Trunk Region, Percutaneous Endoscopic Approach (ICD-10-PCS; 2017-02-20)
PROC: 0DTF4ZZ Resection of Right Large Intestine, Percutaneous Endoscopic Approach (ICD-10-PCS; principal; 2017-02-20 07:10)
DX: C17.2 Malignant neoplasm of ileum (principal); C77.2 Secondary and unspecified malignant neoplasm of intra-abdominal lymph nodes; J98.11 Atelectasis; K21.9 Gastro-esophageal reflux disease without esophagitis; K91.89 Other postprocedural complications and disorders of digestive system; E66.9 Obesity, unspecified; K56.7 Ileus, unspecified; L03.311 Cellulitis of abdominal wall; G47.30 Sleep apnea, unspecified; Z68.31 Body mass index [BMI] 31.0-31.9, adult; R11.2 Nausea with vomiting, unspecified
CPT/HCPCS: 36415; 36569; 71010; 74177; 76937; 80048; 80053; 80202; 82962; 83735; 84100; 84134; 84478; 85007; 85025; 85027; 85610; 86850; 86900; 86901; 94664; 94760

== ENCOUNTER 2017-03-31 17:19 | Outpatient (RCR) | payer OTHER ==
[2017-03-30 08:31] LABS: BASOPHILS % (AUTO) 0 % (0-10); EOSINOPHILS # (AUTO) 0.2 10^3/uL (0.0-0.3); EOSINOPHILS % (AUTO) 3 % (0-10); HEMATOCRIT 38 % (40-54); HEMOGLOBIN 13.6 G/DL (13.3-17.7); LYMPHOCYTES # (AUTO) 1.1 X 10^3 (1.0-4.0); LYMPHOCYTES % (AUTO) 18 % (12-44); MEAN CORPUSCULAR HEMOGLOBIN 30 PG (25-34); MEAN CORPUSCULAR HGB CONC 35 G/DL (32-36); MEAN CORPUSCULAR VOLUME 85 FL (80-99); MEAN PLATELET VOLUME 10.2 FL (7.4-10.4); MONOCYTES # (AUTO) 0.5 X 10^3 (0.0-1.0); MONOCYTES % (AUTO) 8 % (0-12); NEUTROPHILS # (AUTO) 4.3 X 10^3 (1.8-7.8); NEUTROPHILS % (AUTO) 71 % (42-75); PLATELET COUNT 257 10^3/uL (130-400); RED BLOOD COUNT 4.54 10^6/uL (4.35-5.85); RED CELL DISTRIBUTION WIDTH 13.6 % (10.0-14.5); WHITE BLOOD COUNT 6.1 10^3/uL (4.3-11.0)
[2017-03-30 08:49] LABS: ALANINE AMINOTRANSFERASE 29 U/L (0-55); ALBUMIN 4.2 GM/DL (3.2-4.5); ALKALINE PHOSPHATASE 64 U/L (40-136); BILIRUBIN,TOTAL 0.8 MG/DL (0.1-1.0); BUN/CREATININE RATIO 9; CALCIUM 9.3 MG/DL (8.5-10.1); CARBON DIOXIDE 22 MMOL/L (21-32); CHLORIDE 105 MMOL/L (98-107); CREATININE SERUM 1.07 MG/DL (0.60-1.30); GFR ESTIMATED > 60; GLUCOSE 106 MG/DL (70-105); POTASSIUM 3.8 MMOL/L (3.6-5.0); SODIUM 138 MMOL/L (135-145); TOTAL PROTEIN 7.1 GM/DL (6.4-8.2)
[~2017-03-31 17:19] MED LIST changes: +SILD100T PO
== END 2017-06-28 | disposition home or self-care (01) ==
LOC: LAB 17:19
PROVIDERS: ATTEND Internal Medicine Hematology & Oncology
DX: C7A.012 Malignant carcinoid tumor of the ileum (principal); C77.2 Secondary and unspecified malignant neoplasm of intra-abdominal lymph nodes; K21.9 Gastro-esophageal reflux disease without esophagitis; G47.30 Sleep apnea, unspecified; Z79.899 Other long term (current) drug therapy
CPT/HCPCS: 36415; 80053; 83497; 83615; 85025; 86316

== ENCOUNTER 2017-04-13 13:41 | Outpatient (RCR) | payer OTHER | END 2017-07-12 | disposition home or self-care (01) | LOC: ONC 13:41 | PROVIDERS: ATTEND Internal Medicine Hematology & Oncology | DX: D3A.8 Other benign neuroendocrine tumors (principal) | CPT/HCPCS: 99214 ==

== ENCOUNTER 2017-10-15 10:26 | Outpatient (RCR) | payer OTHER ==
[2017-09-28 08:55] LABS: BASOPHILS % (AUTO) 0 % (0-10); EOSINOPHILS # (AUTO) 0.1 10^3/uL (0.0-0.3); EOSINOPHILS % (AUTO) 2 % (0-10); HEMATOCRIT 41 % (40-54); HEMOGLOBIN 14.8 G/DL (13.3-17.7); LYMPHOCYTES # (AUTO) 1.2 X 10^3 (1.0-4.0); LYMPHOCYTES % (AUTO) 18 % (12-44); MEAN CORPUSCULAR HEMOGLOBIN 31 PG (25-34); MEAN CORPUSCULAR HGB CONC 36 G/DL (32-36); MEAN CORPUSCULAR VOLUME 85 FL (80-99); MEAN PLATELET VOLUME 10.1 FL (7.4-10.4); MONOCYTES # (AUTO) 0.6 X 10^3 (0.0-1.0); MONOCYTES % (AUTO) 9 % (0-12); NEUTROPHILS # (AUTO) 4.8 X 10^3 (1.8-7.8); NEUTROPHILS % (AUTO) 71 % (42-75); PLATELET COUNT 308 10^3/uL (130-400); RED BLOOD COUNT 4.84 10^6/uL (4.35-5.85); RED CELL DISTRIBUTION WIDTH 13.4 % (10.0-14.5); WHITE BLOOD COUNT 6.7 10^3/uL (4.3-11.0)
[2017-09-28 09:16] LABS: ALBUMIN 4.6 GM/DL (3.2-4.5); BILIRUBIN,TOTAL 0.8 MG/DL (0.1-1.0); CALCIUM 9.4 MG/DL (8.5-10.1); CREATININE SERUM 1.28 MG/DL (0.60-1.30); POTASSIUM 4.1 MMOL/L (3.6-5.0); TOTAL PROTEIN 7.5 GM/DL (6.4-8.2)
== END 2017-12-27 | disposition home or self-care (01) ==
LOC: ONC 10:26
PROVIDERS: ATTEND Internal Medicine Hematology & Oncology
DX: C7A.012 Malignant carcinoid tumor of the ileum (principal); C77.2 Secondary and unspecified malignant neoplasm of intra-abdominal lymph nodes; K21.9 Gastro-esophageal reflux disease without esophagitis; G47.30 Sleep apnea, unspecified; Z79.899 Other long term (current) drug therapy
CPT/HCPCS: 36415; 80053; 83497; 83615; 85025; 86316; 99213

== ENCOUNTER → 2017-10-29 | Outpatient (CLI) | payer OTHER | LOC: CARD 12:48 | PROVIDERS: ATTEND Internal Medicine Cardiovascular Disease | DX: R07.89 Other chest pain (principal); K21.9 Gastro-esophageal reflux disease without esophagitis; D3A.098 Benign carcinoid tumors of other sites; I10 Essential (primary) hypertension; G47.33 Obstructive sleep apnea (adult) (pediatric) | CPT/HCPCS: 93306 ==

== ENCOUNTER → 2017-10-30 | Outpatient (CLI) | payer OTHER | LOC: CARD 10:05 | PROVIDERS: ATTEND Internal Medicine Cardiovascular Disease | DX: R07.89 Other chest pain (principal); K21.9 Gastro-esophageal reflux disease without esophagitis; D3A.098 Benign carcinoid tumors of other sites; I10 Essential (primary) hypertension; G47.33 Obstructive sleep apnea (adult) (pediatric) | CPT/HCPCS: 93017 ==

== ENCOUNTER → 2018-03-01 | Outpatient (CLI) | payer OTHER ==
[~2018-03-01] MED LIST changes: +IOHEXOL 350 MG/ML 100 ML (OMNIPAQUE 350) VIAL IV ONE; +NS 100 ML (IVPB) BAG IV ONE; +RECEIVED CONTRAST (Hold Metformin) IV SCH
--- NOTE | 2018-03-01 11:16 | Diagnostic Imaging Report ---
PROCEDURE: CT abdomen and pelvis with contrast. TECHNIQUE: Multiple contiguous axial images were obtained through the abdomen and pelvis after administration of intravenous contrast. INDICATION: Restage neoplasm. Patient has carcinoma of small intestine. COMPARISON: Correlation is made with prior CT abdomen and pelvis study from 02/26/2017. FINDINGS: The lung bases are clear. Liver demonstrates some generalized low density suggestive of hepatic steatosis. No discrete liver mass is identified. There is no biliary duct dilatation. The gallbladder is unremarkable. The pancreas and spleen are unremarkable. No adrenal mass is identified. The kidneys appear stable. Aorta is non-aneurysmal. No central retroperitoneal or mesenteric lymphadenopathy is seen. Bowel loops appear to be normal caliber. No obstruction is identified. Postsurgical changes in the right upper quadrant are again noted with anastomotic sutures present. The bladder and prostate are unremarkable. No inguinal or iliac lymphadenopathy is seen. Small left obturator node appears to be stable. 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 IMPRESSION: Unremarkable postoperative CT of the abdomen and pelvis. No bowel obstruction is seen. No abdominal or pelvic lymphadenopathy or evidence of mass is detected. Dictated by: Dictated on workstation # [id number]
== END ==
LOC: RAD 09:33
PROVIDERS: ATTEND Internal Medicine Hematology & Oncology
DX: C17.9 Malignant neoplasm of small intestine, unspecified (principal); C77.9 Secondary and unspecified malignant neoplasm of lymph node, unspecified; D3A.098 Benign carcinoid tumors of other sites
CPT/HCPCS: 74177

== ENCOUNTER 2018-03-18 10:53 | Outpatient (RCR) | payer OTHER ==
[2018-03-01 09:24] LABS: BASOPHILS % (AUTO) 1 % (0-10); EOSINOPHILS # (AUTO) 0.2 10^3/uL (0.0-0.3); EOSINOPHILS % (AUTO) 4 % (0-10); HEMATOCRIT 42 % (40-54); HEMOGLOBIN 14.5 G/DL (13.3-17.7); LYMPHOCYTES # (AUTO) 1.3 X 10^3 (1.0-4.0); LYMPHOCYTES % (AUTO) 20 % (12-44); MEAN CORPUSCULAR HEMOGLOBIN 30 PG (25-34); MEAN CORPUSCULAR HGB CONC 35 G/DL (32-36); MEAN CORPUSCULAR VOLUME 86 FL (80-99); MEAN PLATELET VOLUME 9.9 FL (7.4-10.4); MONOCYTES # (AUTO) 0.6 X 10^3 (0.0-1.0); MONOCYTES % (AUTO) 9 % (0-12); NEUTROPHILS # (AUTO) 4.3 X 10^3 (1.8-7.8); NEUTROPHILS % (AUTO) 67 % (42-75); PLATELET COUNT 289 10^3/uL (130-400); WHITE BLOOD COUNT 6.4 10^3/uL (4.3-11.0)
[2018-03-01 09:42] LABS: ALBUMIN 4.5 GM/DL (3.2-4.5); BILIRUBIN,TOTAL 0.6 MG/DL (0.1-1.0); CALCIUM 9.4 MG/DL (8.5-10.1); CREATININE SERUM 1.29 MG/DL (0.60-1.30); POTASSIUM 4.1 MMOL/L (3.6-5.0); TOTAL PROTEIN 7.4 GM/DL (6.4-8.2)
[~2018-03-18 10:53] MED LIST changes: -IOHEXOL 350 MG/ML 100 ML (OMNIPAQUE 350) VIAL IV ONE; -NS 100 ML (IVPB) BAG IV ONE; -RECEIVED CONTRAST (Hold Metformin) IV SCH
== END 2018-05-30 | disposition home or self-care (01) ==
LOC: ONC 10:53
PROVIDERS: ATTEND Internal Medicine Hematology & Oncology
DX: C7A.012 Malignant carcinoid tumor of the ileum (principal); C77.2 Secondary and unspecified malignant neoplasm of intra-abdominal lymph nodes; K21.9 Gastro-esophageal reflux disease without esophagitis; G47.30 Sleep apnea, unspecified; Z79.899 Other long term (current) drug therapy
CPT/HCPCS: 36415; 80053; 83497; 85025; 86316; 99213

== ENCOUNTER → 2018-06-09 | Outpatient (CLI) | payer OTHER ==
[2018-06-09 08:15] LABS: ALBUMIN 4.3 GM/DL (3.2-4.5); BILIRUBIN,DIRECT 0.2 MG/DL (0.0-0.3); BILIRUBIN,INDIRECT 0.5 MG/DL; BILIRUBIN,TOTAL 0.7 MG/DL (0.1-1.0); TOTAL PROTEIN 6.9 GM/DL (6.4-8.2)
== END ==
LOC: LAB 07:42
PROVIDERS: ATTEND Physician Assistant
DX: R07.89 Other chest pain (principal); I10 Essential (primary) hypertension; K21.9 Gastro-esophageal reflux disease without esophagitis; G47.33 Obstructive sleep apnea (adult) (pediatric)
CPT/HCPCS: 36415; 80061; 80076

== ENCOUNTER 2018-10-05 13:19 | Outpatient (RCR) | payer OTHER ==
[2018-09-20 08:47] LABS: BASOPHILS % (AUTO) 0 % (0-10); EOSINOPHILS # (AUTO) 0.2 10^3/uL (0.0-0.3); EOSINOPHILS % (AUTO) 3 % (0-10); HEMATOCRIT 41 % (40-54); HEMOGLOBIN 14.1 G/DL (13.3-17.7); LYMPHOCYTES # (AUTO) 1.2 X 10^3 (1.0-4.0); LYMPHOCYTES % (AUTO) 17 % (12-44); MEAN CORPUSCULAR HEMOGLOBIN 30 PG (25-34); MEAN CORPUSCULAR HGB CONC 35 G/DL (32-36); MEAN CORPUSCULAR VOLUME 85 FL (80-99); MEAN PLATELET VOLUME 10.5 FL (7.4-10.4); MONOCYTES # (AUTO) 0.7 X 10^3 (0.0-1.0); MONOCYTES % (AUTO) 9 % (0-12); NEUTROPHILS % (AUTO) 70 % (42-75); PLATELET COUNT 267 10^3/uL (130-400); RED CELL DISTRIBUTION WIDTH 13.4 % (10.0-14.5); WHITE BLOOD COUNT 7.1 10^3/uL (4.3-11.0)
[2018-09-20 09:12] LABS: ALANINE AMINOTRANSFERASE 25 U/L (0-55); ALBUMIN 4.3 GM/DL (3.2-4.5); ALKALINE PHOSPHATASE 54 U/L (40-136); BILIRUBIN,TOTAL 0.5 MG/DL (0.1-1.0); BUN/CREATININE RATIO 14; CARBON DIOXIDE 24 MMOL/L (21-32); CHLORIDE 106 MMOL/L (98-107); CREATININE SERUM 1.23 MG/DL (0.60-1.30); GFR ESTIMATED > 60; GLUCOSE 102 MG/DL (70-105); POTASSIUM 3.8 MMOL/L (3.6-5.0); SODIUM 137 MMOL/L (135-145); TOTAL PROTEIN 6.8 GM/DL (6.4-8.2)
== END 2018-12-19 | disposition home or self-care (01) ==
LOC: ONC 13:19
PROVIDERS: ATTEND Internal Medicine Hematology & Oncology
DX: C7A.012 Malignant carcinoid tumor of the ileum (principal); C77.2 Secondary and unspecified malignant neoplasm of intra-abdominal lymph nodes; K21.9 Gastro-esophageal reflux disease without esophagitis; G47.30 Sleep apnea, unspecified; Z79.899 Other long term (current) drug therapy
CPT/HCPCS: 36415; 80053; 83497; 85025; 86316; 99213

== ENCOUNTER 2019-04-07 14:52 | Outpatient (RCR) | payer OTHER ==
[2019-03-24 16:43] LABS: BASOPHILS % (AUTO) 0 % (0-10); EOSINOPHILS # (AUTO) 0.2 10^3/uL (0.0-0.3); EOSINOPHILS % (AUTO) 3 % (0-10); HEMATOCRIT 44 % (40-54); HEMOGLOBIN 15.3 G/DL (13.3-17.7); LYMPHOCYTES # (AUTO) 1.7 X 10^3 (1.0-4.0); LYMPHOCYTES % (AUTO) 24 % (12-44); MEAN CORPUSCULAR HEMOGLOBIN 30 PG (25-34); MEAN CORPUSCULAR HGB CONC 35 G/DL (32-36); MEAN CORPUSCULAR VOLUME 85 FL (80-99); MEAN PLATELET VOLUME 10.2 FL (7.4-10.4); MONOCYTES # (AUTO) 0.7 X 10^3 (0.0-1.0); MONOCYTES % (AUTO) 10 % (0-12); NEUTROPHILS # (AUTO) 4.4 X 10^3 (1.8-7.8); NEUTROPHILS % (AUTO) 63 % (42-75); PLATELET COUNT 293 10^3/uL (130-400); RED CELL DISTRIBUTION WIDTH 13.6 % (10.0-14.5)
[2019-03-24 16:57] LABS: ALANINE AMINOTRANSFERASE 23 U/L (0-55); ALBUMIN 4.9 GM/DL (3.2-4.5); ALKALINE PHOSPHATASE 57 U/L (40-136); BILIRUBIN,TOTAL 0.6 MG/DL (0.1-1.0); BUN/CREATININE RATIO 13; CALCIUM 9.6 MG/DL (8.5-10.1); CARBON DIOXIDE 24 MMOL/L (21-32); CHLORIDE 104 MMOL/L (98-107); CREATININE SERUM 1.23 MG/DL (0.60-1.30); GFR ESTIMATED > 60; GLUCOSE 83 MG/DL (70-105); POTASSIUM 4.2 MMOL/L (3.6-5.0); SODIUM 139 MMOL/L (135-145); TOTAL PROTEIN 7.9 GM/DL (6.4-8.2)
== END 2019-06-22 | disposition home or self-care (01) ==
LOC: ONC 14:52
PROVIDERS: ATTEND Internal Medicine Hematology & Oncology
DX: C7A.012 Malignant carcinoid tumor of the ileum (principal); C77.2 Secondary and unspecified malignant neoplasm of intra-abdominal lymph nodes; K21.9 Gastro-esophageal reflux disease without esophagitis; G47.30 Sleep apnea, unspecified; Z79.899 Other long term (current) drug therapy
CPT/HCPCS: 80053; 83497; 85025; 86316; 99213

== ENCOUNTER 2019-10-05 12:55 | Outpatient (RCR) | payer OTHER ==
[2019-09-19 12:32] LABS: BASOPHILS % (AUTO) 0 % (0-10); EOSINOPHILS # (AUTO) 0.2 10^3/uL (0.0-0.3); EOSINOPHILS % (AUTO) 3 % (0-10); HEMATOCRIT 43 % (40-54); HEMOGLOBIN 15.2 G/DL (13.3-17.7); LYMPHOCYTES # (AUTO) 1.5 X 10^3 (1.0-4.0); LYMPHOCYTES % (AUTO) 23 % (12-44); MEAN CORPUSCULAR HEMOGLOBIN 30 PG (25-34); MEAN CORPUSCULAR HGB CONC 35 G/DL (32-36); MEAN CORPUSCULAR VOLUME 86 FL (80-99); MEAN PLATELET VOLUME 10.4 FL (7.4-10.4); MONOCYTES # (AUTO) 0.3 X 10^3 (0.0-1.0); MONOCYTES % (AUTO) 5 % (0-12); NEUTROPHILS # (AUTO) 4.7 X 10^3 (1.8-7.8); NEUTROPHILS % (AUTO) 70 % (42-75); PLATELET COUNT 298 10^3/uL (130-400); WHITE BLOOD COUNT 6.7 10^3/uL (4.3-11.0)
[2019-09-19 12:54] LABS: ALANINE AMINOTRANSFERASE 18 U/L (0-55); ALBUMIN 4.6 GM/DL (3.2-4.5); ALKALINE PHOSPHATASE 57 U/L (40-136); BILIRUBIN,TOTAL 0.7 MG/DL (0.1-1.0); BUN/CREATININE RATIO 12; CALCIUM 9.3 MG/DL (8.5-10.1); CARBON DIOXIDE 23 MMOL/L (21-32); CHLORIDE 106 MMOL/L (98-107); CREATININE SERUM 1.25 MG/DL (0.60-1.30); GFR ESTIMATED > 60; GLUCOSE 119 MG/DL (70-105); POTASSIUM 4.1 MMOL/L (3.6-5.0); SODIUM 139 MMOL/L (135-145); TOTAL PROTEIN 7.6 GM/DL (6.4-8.2)
== END 2019-12-18 | disposition home or self-care (01) ==
LOC: ONC 12:55
PROVIDERS: ATTEND Internal Medicine Hematology & Oncology
DX: C7A.012 Malignant carcinoid tumor of the ileum (principal); C77.2 Secondary and unspecified malignant neoplasm of intra-abdominal lymph nodes; K21.9 Gastro-esophageal reflux disease without esophagitis; G47.30 Sleep apnea, unspecified; Z79.899 Other long term (current) drug therapy
CPT/HCPCS: 80053; 83497; 85025; 86316; 99213

== ENCOUNTER → 2019-11-24 | Outpatient (CLI) | payer OTHER ==
--- NOTE | 2019-11-25 10:49 | NUR ---
Notified patient of Pos COVID results.
== END ==
LOC: LABNPT 06:25
PROVIDERS: ATTEND Family Medicine
DX: U07.1 COVID-19 (principal)
CPT/HCPCS: 87635

== ENCOUNTER → 2020-02-29 | Outpatient (CLI) | payer OTHER ==
[2020-02-29 08:18] LABS: BASOPHILS % (AUTO) 0 % (0-10); EOSINOPHILS # (AUTO) 0.2 10^3/uL (0.0-0.3); EOSINOPHILS % (AUTO) 4 % (0-10); HEMATOCRIT 43 % (40-54); HEMOGLOBIN 14.7 g/dL (13.3-17.7); LYMPHOCYTES # (AUTO) 1.5 10^3/uL (1.0-4.0); LYMPHOCYTES % (AUTO) 22 % (12-44); MEAN CORPUSCULAR HEMOGLOBIN 30 pg (25-34); MEAN CORPUSCULAR HGB CONC 35 g/dL (32-36); MEAN CORPUSCULAR VOLUME 87 fL (80-99); MEAN PLATELET VOLUME 10.1 fL (9.0-12.2); MONOCYTES # (AUTO) 0.5 10^3/uL (0.0-1.0); MONOCYTES % (AUTO) 7 % (0-12); NEUTROPHILS # (AUTO) 4.5 10^3/uL (1.8-7.8); NEUTROPHILS % (AUTO) 67 % (42-75); PLATELET COUNT 277 10^3/uL (130-400); WHITE BLOOD COUNT 6.7 10^3/uL (4.3-11.0)
[2020-02-29 08:35] LABS: ALANINE AMINOTRANSFERASE 18 U/L (0-55); ALBUMIN 4.6 GM/DL (3.2-4.5); ALKALINE PHOSPHATASE 49 U/L (40-136); BILIRUBIN,TOTAL 0.7 MG/DL (0.1-1.0); BUN/CREATININE RATIO 13; CARBON DIOXIDE 21 MMOL/L (21-32); CHLORIDE 107 MMOL/L (98-107); CHOLESTEROL 135 MG/DL (< 200); CREATININE SERUM 1.34 MG/DL (0.60-1.30); GFR ESTIMATED 56; GLUCOSE 107 MG/DL (70-105); HDL CHOLESTEROL 35 MG/DL (40-60); POTASSIUM 4.1 MMOL/L (3.6-5.0); SODIUM 138 MMOL/L (135-145); TOTAL PROTEIN 7.5 GM/DL (6.4-8.2); TRIGLYCERIDES 190 MG/DL (<150); VLDL CHOLESTEROL 38 MG/DL (5-40)
== END ==
LOC: LAB 07:53
PROVIDERS: ATTEND Family Medicine
DX: Z00.00 Encounter for general adult medical examination without abnormal findings (principal); U07.1 COVID-19
CPT/HCPCS: 36415; 80053; 80061; 85025; 86769

== ENCOUNTER 2020-03-01 10:58 | Outpatient (RCR) | payer OTHER ==
[~2020-03-01 10:58] MED LIST changes: -OXYC-471 PO; +OXYC1TAB11 PO
== END 2020-05-16 | disposition home or self-care (01) ==
LOC: ONC 10:58
PROVIDERS: ATTEND Internal Medicine Hematology & Oncology
DX: D3A.098 Benign carcinoid tumors of other sites (principal); C77.2 Secondary and unspecified malignant neoplasm of intra-abdominal lymph nodes
CPT/HCPCS: 80053; 83497; 85025; 86316; 99213

== ENCOUNTER 2020-09-06 10:51 | Outpatient (RCR) | payer OTHER ==
[2020-08-24 10:15] LABS: BASOPHILS % (AUTO) 1 % (0-10); EOSINOPHILS # (AUTO) 0.2 10^3/uL (0.0-0.3); EOSINOPHILS % (AUTO) 4 % (0-10); HEMATOCRIT 44 % (40-54); LYMPHOCYTES # (AUTO) 1.3 10^3/uL (1.0-4.0); LYMPHOCYTES % (AUTO) 20 % (12-44); MEAN CORPUSCULAR HEMOGLOBIN 30 pg (25-34); MEAN CORPUSCULAR HGB CONC 34 g/dL (32-36); MEAN CORPUSCULAR VOLUME 88 fL (80-99); MEAN PLATELET VOLUME 10.2 fL (9.0-12.2); MONOCYTES # (AUTO) 0.6 10^3/uL (0.0-1.0); MONOCYTES % (AUTO) 9 % (0-12); NEUTROPHILS # (AUTO) 4.4 10^3/uL (1.8-7.8); NEUTROPHILS % (AUTO) 66 % (42-75); PLATELET COUNT 292 10^3/uL (130-400); WHITE BLOOD COUNT 6.6 10^3/uL (4.3-11.0)
[2020-08-24 10:35] LABS: ALANINE AMINOTRANSFERASE 16 U/L (0-55); ALBUMIN 4.4 GM/DL (3.2-4.5); ALKALINE PHOSPHATASE 61 U/L (40-136); BILIRUBIN,TOTAL 0.4 MG/DL (0.1-1.0); BUN/CREATININE RATIO 9; CALCIUM 9.5 MG/DL (8.5-10.1); CARBON DIOXIDE 26 MMOL/L (21-32); CHLORIDE 104 MMOL/L (98-107); GFR ESTIMATED > 60; GLUCOSE 97 MG/DL (70-105); POTASSIUM 4.2 MMOL/L (3.6-5.0); SODIUM 137 MMOL/L (135-145); TOTAL PROTEIN 7.7 GM/DL (6.4-8.2)
== END 2020-11-22 | disposition home or self-care (01) ==
LOC: ONC 10:51
PROVIDERS: ATTEND Internal Medicine Hematology & Oncology
DX: D3A.012 Benign carcinoid tumor of the ileum (principal); C77.2 Secondary and unspecified malignant neoplasm of intra-abdominal lymph nodes; G47.33 Obstructive sleep apnea (adult) (pediatric); K21.9 Gastro-esophageal reflux disease without esophagitis; I10 Essential (primary) hypertension; Z90.49 Acquired absence of other specified parts of digestive tract; Z99.89 Dependence on other enabling machines and devices
CPT/HCPCS: 80053; 83497; 85025; 86316; 99213

== ENCOUNTER → 2021-02-13 | Outpatient (CLI) | payer OTHER ==
[2021-02-13 07:40] LABS: BASOPHILS % (AUTO) 0 % (0-10); EOSINOPHILS # (AUTO) 0.2 10^3/uL (0.0-0.3); EOSINOPHILS % (AUTO) 3 % (0-10); HEMATOCRIT 43 % (40-54); HEMOGLOBIN 14.8 g/dL (13.3-17.7); LYMPHOCYTES # (AUTO) 1.4 10^3/uL (1.0-4.0); LYMPHOCYTES % (AUTO) 21 % (12-44); MEAN CORPUSCULAR HEMOGLOBIN 30 pg (25-34); MEAN CORPUSCULAR HGB CONC 35 g/dL (32-36); MEAN CORPUSCULAR VOLUME 86 fL (80-99); MEAN PLATELET VOLUME 10.2 fL (9.0-12.2); MONOCYTES # (AUTO) 0.6 10^3/uL (0.0-1.0); MONOCYTES % (AUTO) 8 % (0-12); NEUTROPHILS # (AUTO) 4.5 10^3/uL (1.8-7.8); NEUTROPHILS % (AUTO) 67 % (42-75); PLATELET COUNT 282 10^3/uL (130-400); WHITE BLOOD COUNT 6.7 10^3/uL (4.3-11.0)
[2021-02-13 08:01] LABS: ALBUMIN 4.3 GM/DL (3.2-4.5); BILIRUBIN,TOTAL 0.5 MG/DL (0.1-1.0); CALCIUM 9.2 MG/DL (8.5-10.1); CREATININE SERUM 1.26 MG/DL (0.60-1.30); TOTAL PROTEIN 7.2 GM/DL (6.4-8.2)
== END ==
LOC: LAB 07:13
PROVIDERS: ATTEND Family Medicine
DX: L70.0 Acne vulgaris (principal); L90.5 Scar conditions and fibrosis of skin; D48.5 Neoplasm of uncertain behavior of skin
CPT/HCPCS: 36415; 80053; 80061; 85025

== ENCOUNTER → 2021-08-27 | Outpatient (CLI) | payer OTHER ==
[2021-08-27 07:36] LABS: HEMATOCRIT 41 % (40-54); HEMOGLOBIN 14.3 g/dL (13.3-17.7); MEAN CORPUSCULAR HEMOGLOBIN 30 pg (25-34); MEAN CORPUSCULAR HGB CONC 35 g/dL (32-36); MEAN CORPUSCULAR VOLUME 87 fL (80-99); PLATELET COUNT 288 10^3/uL (130-400); WHITE BLOOD COUNT 8.4 10^3/uL (4.3-11.0)
[2021-08-27 07:58] LABS: ALBUMIN 4.3 GM/DL (3.2-4.5); BILIRUBIN,TOTAL 0.8 MG/DL (0.1-1.0); CALCIUM 9.2 MG/DL (8.5-10.1); CREATININE SERUM 1.1 MG/DL (0.60-1.30); POTASSIUM 4.1 MMOL/L (3.6-5.0); TOTAL PROTEIN 6.9 GM/DL (6.4-8.2)
== END ==
LOC: LAB 07:09
PROVIDERS: ATTEND Internal Medicine Hematology & Oncology
DX: D37.9 Neoplasm of uncertain behavior of digestive organ, unspecified (principal); C77.2 Secondary and unspecified malignant neoplasm of intra-abdominal lymph nodes
CPT/HCPCS: 36415; 80053; 83497; 85027; 86316

== ENCOUNTER → 2021-10-30 | Outpatient (CLI) | payer OTHER | LOC: LAB 07:37 | PROVIDERS: ATTEND Family Medicine | DX: E29.1 Testicular hypofunction (principal) | CPT/HCPCS: 36415; 84403 ==

== ENCOUNTER → 2021-10-30 | Outpatient (CLI) | payer OTHER | LOC: LAB 07:40 | PROVIDERS: ATTEND Internal Medicine Hematology & Oncology | DX: D3A.092 Benign carcinoid tumor of the stomach (principal); C77.2 Secondary and unspecified malignant neoplasm of intra-abdominal lymph nodes | CPT/HCPCS: 36415; 86316 ==

== ENCOUNTER → 2022-01-13 | Outpatient (CLI) | payer OTHER ==
[2022-01-13 16:57] LABS: BASOPHILS % (AUTO) 0 % (0-10); EOSINOPHILS # (AUTO) 0.3 10^3/uL (0.0-0.3); EOSINOPHILS % (AUTO) 4 % (0-10); HEMATOCRIT 41 % (40-54); HEMOGLOBIN 13.6 g/dL (13.3-17.7); LYMPHOCYTES # (AUTO) 1.7 10^3/uL (1.0-4.0); LYMPHOCYTES % (AUTO) 20 % (12-44); MEAN CORPUSCULAR HEMOGLOBIN 30 pg (25-34); MEAN CORPUSCULAR HGB CONC 34 g/dL (32-36); MEAN CORPUSCULAR VOLUME 89 fL (80-99); MEAN PLATELET VOLUME 10.1 fL (9.0-12.2); MONOCYTES # (AUTO) 0.7 10^3/uL (0.0-1.0); MONOCYTES % (AUTO) 9 % (0-12); NEUTROPHILS # (AUTO) 5.7 10^3/uL (1.8-7.8); NEUTROPHILS % (AUTO) 67 % (42-75); PLATELET COUNT 276 10^3/uL (130-400); WHITE BLOOD COUNT 8.5 10^3/uL (4.3-11.0)
[2022-01-13 17:11] LABS: ALBUMIN 4.3 GM/DL (3.2-4.5); POTASSIUM 3.8 MMOL/L (3.6-5.0)
[2022-01-13 17:12] LABS: CALCIUM 9.2 MG/DL (8.5-10.1)
[2022-01-13 17:16] LABS: BILIRUBIN,TOTAL 0.6 MG/DL (0.1-1.0)
[2022-01-13 17:17] LABS: CREATININE SERUM 1.16 MG/DL (0.60-1.30)
== END ==
LOC: LAB 16:37
PROVIDERS: ATTEND Family Medicine
DX: Z00.00 Encounter for general adult medical examination without abnormal findings (principal)
CPT/HCPCS: 36415; 80053; 80061; 85025

== ENCOUNTER 2022-02-24 07:55 | Outpatient (RCR) | payer BC, OTHER ==
[2022-02-20 08:52] LABS: HEMATOCRIT 42 % (40-54); HEMOGLOBIN 14.6 g/dL (13.3-17.7); MEAN CORPUSCULAR HEMOGLOBIN 30 pg (25-34); MEAN CORPUSCULAR HGB CONC 35 g/dL (32-36); MEAN CORPUSCULAR VOLUME 88 fL (80-99); MEAN PLATELET VOLUME 10.1 fL (9.0-12.2); PLATELET COUNT 284 10^3/uL (130-400); WHITE BLOOD COUNT 7.1 10^3/uL (4.3-11.0)
[2022-02-20 09:11] LABS: ALBUMIN 4.4 GM/DL (3.2-4.5); BILIRUBIN,TOTAL 0.9 MG/DL (0.1-1.0); CALCIUM 9.3 MG/DL (8.5-10.1); CREATININE SERUM 1.23 MG/DL (0.60-1.30); POTASSIUM 4.2 MMOL/L (3.6-5.0); TOTAL PROTEIN 7.1 GM/DL (6.4-8.2)
[2022-02-20 09:32] LABS: BASOPHILS % (AUTO) 1 % (0-10); EOSINOPHILS # (AUTO) 0.2 10^3/uL (0.0-0.3); EOSINOPHILS % (AUTO) 2 % (0-10); LYMPHOCYTES # (AUTO) 1.3 10^3/uL (1.0-4.0); LYMPHOCYTES % (AUTO) 18 % (12-44); MONOCYTES # (AUTO) 0.5 10^3/uL (0.0-1.0); MONOCYTES % (AUTO) 7 % (0-12); NEUTROPHILS # (AUTO) 5.3 10^3/uL (1.8-7.8); NEUTROPHILS % (AUTO) 73 % (42-75)
== END 2022-03-15 | disposition home or self-care (01) ==
LOC: LAB 07:55
PROVIDERS: ATTEND Internal Medicine Hematology & Oncology
DX: D37.9 Neoplasm of uncertain behavior of digestive organ, unspecified (principal); C77.2 Secondary and unspecified malignant neoplasm of intra-abdominal lymph nodes
CPT/HCPCS: 36415; 80053; 83497; 85025; 85027; 86316